=== PATIENT | male | born 1950 | race Caucasian/White ===

== ENCOUNTER → 2016-05-07 | Outpatient (CLI) | payer BC ==
[~2016-05-07] MED LIST: ALFU10TA30 PO; ASPCH81X PO; FLUO40CA8 PO; LEVO150T9 PO; OXYC1TAB3 PO; SIMV20TA2 PO
--- NOTE | 2016-05-07 10:14 | DIAGNOSTIC IMAGING REPORT ---
CHEST 2 VIEWS ROUTINE CLINICAL HISTORY: Renal cell carcinoma COMPARISON STUDY: 09/22/2015 FINDINGS: The cardiac and mediastinal contours are normal. There is no evidence of focal pulmonary consolidation. There is no evidence of failure. No pleural effusions are visualized.[ IMPRESSION: No active disease in the chest. Electronically signed by: Marcel Roa M.D. 05/07/2016 10:12 AM Dictated Date/Time: 05/07/2016 10:12 AM
[2016-05-07 10:40] LABS: ALB/GLOB RATIO 1.1 (0.9-2); ALKALINE PHOSPHATASE 62 U/L (45-117); ALT/SGPT 33 U/L (12-78); AST/SGOT 13 U/L (15-37); BLOOD UREA NITROGEN 13 mg/dl (7-18); BUN/CREATININE RATIO 13.3 (10-20); CALCIUM 8.4 mg/dl (8.5-10.1); CARBON DIOXIDE 25 mmol/L (21-32); CHLORIDE 109 mmol/L (98-107); CREATININE 0.97 mg/dl (0.60-1.40); GLUCOSE 181 mg/dl (70-99); POTASSIUM 4.3 mmol/L (3.5-5.1); SODIUM 143 mmol/L (136-145)
== END | disposition home or self-care (01) ==
LOC: C.RAD 09:43
PROVIDERS: ATTEND Urology
DX: N28.89 Other specified disorders of kidney and ureter (principal)

== ENCOUNTER → 2016-05-08 | Outpatient (CLI) | payer BC ==
[2016-05-08 12:37] LABS: BLOOD UREA NITROGEN 11 mg/dl (7-18); BUN/CREATININE RATIO 12.5 (10-20); CALCIUM 8.8 mg/dl (8.5-10.1); CARBON DIOXIDE 28 mmol/L (21-32); CHLORIDE 106 mmol/L (98-107); CREATININE 0.92 mg/dl (0.60-1.40); GLUCOSE 103 mg/dl (70-99); POTASSIUM 4.4 mmol/L (3.5-5.1); SODIUM 140 mmol/L (136-145)
[2016-05-08 12:40] LABS: CHOLESTEROL 171 mg/dl (0-200); CHOLESTEROL/HDL RATIO 3.1; ESTIMATED AVERAGE GLUCOSE 128 mg/dl; HA1C FLAG Normal (Normal); HDL CHOLESTEROL 55 mg/dl; LDL CHOLESTEROL CALCULATED 83 mg/dl; TRIGLYCERIDES 166 mg/dl (0-150); VERY LOW DENSITY LIPOPROT CALC 33 mg/dl
== END | disposition home or self-care (01) ==
LOC: C.LAB 10:16
PROVIDERS: ATTEND Internal Medicine
DX: R73.03 Prediabetes (principal); E78.5 Hyperlipidemia, unspecified; C64.9 Malignant neoplasm of unspecified kidney, except renal pelvis

== ENCOUNTER → 2016-09-03 | Outpatient (CLI) | payer BC ==
[~2016-09-03] MED LIST changes: +ALFU10TA2 PO; -ALFU10TA30 PO
--- NOTE | 2016-09-03 15:20 | DIAGNOSTIC IMAGING REPORT ---
CHEST 2 VIEWS ROUTINE CLINICAL HISTORY: N28.89 Renal massC64.9 Renal cell carcinoma COMPARISON STUDY: 05/07/2016 FINDINGS: The bones soft tissues and hemidiaphragms are normal. The cardiomediastinal silhouette is normal. The lungs are clear. The pulmonary vasculature is normal. IMPRESSION: Negative chest. Electronically signed by: Sekou Neely M.D. 09/03/2016 3:19 PM Dictated Date/Time: 09/03/2016 3:18 PM
[2016-09-03 16:23] LABS: ALT/SGPT 37 U/L (12-78); BLOOD UREA NITROGEN 15 mg/dl (7-18); BUN/CREATININE RATIO 16.9 (10-20); CARBON DIOXIDE 24 mmol/L (21-32); CHLORIDE 111 mmol/L (98-107); GLUCOSE 85 mg/dl (70-99); POTASSIUM 3.9 mmol/L (3.5-5.1); SODIUM 143 mmol/L (136-145)
[2016-09-03 16:28] LABS: ALB/GLOB RATIO 0.8 (0.9-2); ALKALINE PHOSPHATASE 64 U/L (45-117); AST/SGOT 21 U/L (15-37)
[2016-09-03 16:44] LABS: CALCIUM 8.7 mg/dl (8.5-10.1)
== END | disposition home or self-care (01) ==
LOC: C.RAD1850 14:41
PROVIDERS: ATTEND Urology
DX: N28.89 Other specified disorders of kidney and ureter (principal); C64.9 Malignant neoplasm of unspecified kidney, except renal pelvis

== ENCOUNTER → 2016-09-11 | Outpatient (CLI) | payer BC ==
[~2016-09-11] MED LIST changes: -ALFU10TA2 PO; +ALFU10TA30 PO; +GADAVIST IV PRN
--- NOTE | 2016-09-11 10:01 | DIAGNOSTIC IMAGING REPORT ---
MRI OF THE ABDOMEN WITH AND WITHOUT CONTRAST RENAL PROTOCOL CLINICAL HISTORY: Renal cell carcinoma status post right partial nephrectomy. COMPARISON STUDY: MRI of the abdomen September 22, 2015. TECHNIQUE: Utilizing a 1.5 Bernice magnet and dedicated coil, multiplanar, multiecho imaging of the abdomen was performed pre and postcontrast administration. Injection of 10.5 cc of Gadavist IV was uneventful. Post contrast imaging was performed utilizing dynamic enhancement. FINDINGS: There are stable postoperative findings consistent with a right partial nephrectomy with resection of the mass arising from the upper pole of the right kidney which was shown on exam of July 28, 2014. No recurrent mass is identified within the partial nephrectomy bed. There are no solid renal lesions on this exam. 2 left renal cysts measure up to 2 cm. There are a few subcentimeter hepatic cyst. There are no suspicious hepatic lesions. The spleen, adrenal glands, kidneys and pancreas are normal. A splenule is noted within the splenic hilum. There is no abdominal lymphadenopathy or ascites. IMPRESSION: 1. No evidence of recurrent malignancy status post right partial nephrectomy. 2. Two left renal cysts. No solid renal lesions. Electronically signed by: Shoaib Holly M.D. 09/11/2016 10:00 AM Dictated Date/Time: 09/11/2016 9:48 AM
== END | disposition home or self-care (01) ==
LOC: C.MRI 08:29
PROVIDERS: ATTEND Urology
DX: C64.9 Malignant neoplasm of unspecified kidney, except renal pelvis (principal); N28.89 Other specified disorders of kidney and ureter; N28.1 Cyst of kidney, acquired

== ENCOUNTER → 2016-09-26 | Outpatient (CLI) | payer BC ==
[~2016-09-26] MED LIST changes: -GADAVIST IV PRN
== END | disposition home or self-care (01) ==
LOC: C.PATHSPEC 11:36
PROVIDERS: ATTEND Urology
DX: R97.20 Elevated prostate specific antigen [PSA] (principal)

== ENCOUNTER → 2016-11-16 | Outpatient (CLI) | payer BC ==
--- NOTE | 2016-11-16 09:26 | DIAGNOSTIC IMAGING REPORT ---
CHEST 2 VIEWS ROUTINE CLINICAL HISTORY: 66 years-old Male presenting with N40.1 Benign localized hyperplasia of prostate with urinary obstruction. TECHNIQUE: PA and lateral views of the chest were obtained. COMPARISON: None. FINDINGS: Cardiomediastinal silhouette normal. Tortuosity of the descending thoracic aorta. Lungs and pleural spaces clear. Osseous structures normal. Upper abdomen normal. IMPRESSION: 1. No acute cardiopulmonary disease. Electronically signed by: Yon Dickens M.D. 11/16/2016 9:24 AM Dictated Date/Time: 11/16/2016 9:24 AM
[2016-11-16 10:08] LABS: BASO % 1.1 %; BASO ABS # 0.06 K/uL (0-0.2); COMPLETE YES; HEMATOCRIT 46.1 % (42-52); IG% 0.2 %; LYMPH % 30.7 %; MEAN CELL VOLUME 92.2 fL (80-100); MEAN CORPUSCULAR HEMOGLOBIN 30.8 pg (25-34); MEAN CORPUSCULAR HGB CONC 33.4 g/dl (32-36); MEAN PLATELET VOLUME 9.8 fL (7.4-10.4); MONO % 8.1 %; NEUT % 55.9 %; PLATELET COUNT 237 K/uL (130-400); WHITE BLOOD COUNT 5.53 K/uL (4.8-10.8)
[2016-11-16 10:43] LABS: ALT/SGPT 29 U/L (12-78); AST/SGOT 12 U/L (15-37); BLOOD UREA NITROGEN 14 mg/dl (7-18); CALCIUM 9.1 mg/dl (8.5-10.1); CARBON DIOXIDE 29 mmol/L (21-32); CHLORIDE 106 mmol/L (98-107); CREATININE 0.96 mg/dl (0.60-1.40); GLUCOSE 105 mg/dl (70-99); POTASSIUM 4.6 mmol/L (3.5-5.1); SODIUM 139 mmol/L (136-145)
[2016-11-16 10:54] LABS: ALB/GLOB RATIO 0.9 (0.9-2); ALKALINE PHOSPHATASE 54 U/L (45-117); CHOLESTEROL 176 mg/dl (0-200); CHOLESTEROL/HDL RATIO 3.5; HDL CHOLESTEROL 50 mg/dl; LDL CHOLESTEROL CALCULATED 93 mg/dl; TRIGLYCERIDES 165 mg/dl (0-150); VERY LOW DENSITY LIPOPROT CALC 33 mg/dl
[2016-11-16 10:56] LABS: ESTIMATED AVERAGE GLUCOSE 140 mg/dl; HA1C FLAG Normal (Normal)
== END | disposition home or self-care (01) ==
LOC: C.RAD1850 09:02
PROVIDERS: ATTEND Urology
DX: E03.9 Hypothyroidism, unspecified (principal); R73.03 Prediabetes; C64.9 Malignant neoplasm of unspecified kidney, except renal pelvis; N40.1 Benign prostatic hyperplasia with lower urinary tract symptoms; E78.5 Hyperlipidemia, unspecified

== ENCOUNTER → 2017-03-15 | Outpatient (CLI) | payer BC ==
[~2017-03-15] MED LIST changes: +ALFU10TA2 PO; -ALFU10TA30 PO; +OXYC-90 PO; -OXYC1TAB3 PO
[2017-03-15 12:29] LABS: HEMOGLOBIN A1C 6.4 % (4.5-5.6)
[2017-03-15 12:31] LABS: BLOOD UREA NITROGEN 12 mg/dl (7-18); CALCIUM 8.9 mg/dl (8.5-10.1); CARBON DIOXIDE 29 mmol/L (21-32); GLUCOSE 115 mg/dl (70-99); POTASSIUM 4.1 mmol/L (3.5-5.1); SODIUM 136 mmol/L (136-145)
== END | disposition home or self-care (01) ==
LOC: C.LAB1850 10:47
PROVIDERS: ATTEND Internal Medicine
DX: R73.03 Prediabetes (principal); C61 Malignant neoplasm of prostate; C64.9 Malignant neoplasm of unspecified kidney, except renal pelvis; N28.89 Other specified disorders of kidney and ureter

== ENCOUNTER 2022-03-13 06:18 | Inpatient (IN) ==
--- NOTE | 2022-03-06 14:45 | Anesthesiology Consultation ---
Date of Service March 06, 2022 Assessment & Plan (1) Encounter for pre-operative examination: - COVID screening: Per commercial drafter on 03/06/2022: Travel screen negative, no known COVID-19 positive contacts or current COVID-19 related symptoms in past 2 weeks. To surgeon's discretion if preop COVID testing is needed. Chart Review Chart Review: Acceptable Risk for Surgery and Patient NOT seen in Pre Admission Testing History Surgery Operation Date: 03/13/22 07:30 Proposed Procedures p Robotic Laparoscopic Assisted Radical Retropubic Prostatectomy, Possible Open, Possible Pelvic Lymph Node Dissection, Possible Suprapubic Tube Placement - Luis Marte MD Height/Weight Height: 6 ft 2 in Weight: 106.594 kg Allergies Allergy/AdvReac Type Severity Reaction Status Date / Time shellfish derived Allergy Severe TIGHTNESS Verified 01/31/22 08:11 IN CHEST/SWELLING OF THROAT codeine AdvReac Mild NAUSEA/VOMI Verified 01/31/22 08:11 TING Medications Home Medications Medication Instructions Recorded Confirmed Last Taken aspirin 81 mg tablet,delayed 81 mg PO QAM ##0 03/16/15 03/06/22 10/27/20 release levothyroxine 125 mcg tablet 125 mcg PO DAILY #90 tabs 12/07/21 03/06/22 Unknown simvastatin 20 mg tablet 20 mg PO QAM #90 tabs 12/07/21 03/06/22 Unknown fluoxetine 40 mg capsule 40 mg PO QAM #90 caps 01/08/22 03/06/22 Unknown cholecalciferol (vitamin D3) 25 25 mcg PO QAM 03/06/22 03/06/22 Unknown mcg (1,000 unit) tablet (Vitamin D3) cyanocobalamin (vitamin B-12) 250 250 mcg PO QAM 03/06/22 03/06/22 Unknown mcg tablet (Vitamin B-12) Past Medical History Medical History (Updated 03/06/22 @ 14:39 by Krissy Leavitt PA-C) Anxiety Cancer of kidney R "RENAL CELL CARCINOMA - CLEAR CELL CARCINOMA - RADICAL NEPHRECTOMY 2014" PER PMHx Depression Diverticulosis Elevated prostate specific antigen (PSA) Former smoker Hyperlipidemia Hypothyroidism Low back pain Pre-diabetes watching diet and A1c Prostate CA ADENOCARCINOMA "JUST MONITORING", NO CHEMO/RADIATION Past Family History Family History Father Congestive heart failure Disc degeneration, lumbar Mother Allergies Kyphoscoliosis Osteoporosis Son Asthma Brother Cerebral arterial aneurysm Denies family history of Colon cancer Ovarian cancer Prostate cancer Myocardial infarction Breast cancer Past Surgical History Surgical History H/O partial nephrectomy R History of colonoscopy History of surgical removal of ganglion cyst R WRIST History of tonsillectomy History of tooth extraction WISDOM TEETH Hx of vasectomy Social History Smoking Status: Former smoker tobacco type: cigarettes Do You Dip or Chew Tobacco: No Smoking End Date: quit 15-20 yrs ago Hx Alcohol Use: Yes Alcohol type: beer and hard liquor alcohol intake frequency: holidays/special occasions only Hx Substance Use: No substance use type: does not use Lab Results Anesthesia Preop Results Results Anesthesia Widget: WBC 6.55 K/ul (4.8-10.8) 02/22/22 Hgb 15.0 g/dl (14.0-18.0) 02/22/22 Hct 45.8 % (40.1-51.0) 02/22/22 Plt 256 K/uL (130-400) 02/22/22 Na 137 mmol/L (136-145) 02/22/22 K 4.1 mmol/L (3.5-5.1) 02/22/22 Cl 105 mmol/L (98-107) 02/22/22 CO2 26 mmol/L (21-32) 02/22/22 BUN 16 mg/dl (6-23) 02/22/22 Creat 0.92 mg/dl (0.6-1.4) 02/22/22 Glucose Level 157 mg/dl (70-99(Fasting)) H 02/22/22 Testing Electrocardiogram Date: 02/22/22 Ectopic atrial rhythm, rate 67 bpm Left anterior fascicular block Septal infarct, age undetermined Septal infarct and ectopic atrial rhythm new vs EKG 10/06/14 Mild SOB with stairs reported per PAT pharmacy intake coordinator call, case discussed in detail with Dr. Garcia who advised pt is acceptable to proceed without further evaluation or testing from his standpoint Chest X-Ray Date: 02/22/22 Cardiac mediastinal and hilar silhouettes are within normal limits. No pneumothorax, pleural effusion, airspace consolidation or overt pulmonary edema. Degenerative changes of the shoulders and spine. IMPRESSION: No acute process. Other Testing Bone scan 01/01/22 The left femoral neck focus of uptake corresponds to a benign-appearing sclerotic lesion in the prior CT abdomen pelvis, no further follow-up is required for this lesion. 1. Prominent uptake in the anterior left ribs may be due to trauma, correlation with history and physical exam is recommended. Blastic metastases cannot be excluded but are considered less likely. 2. Left femoral neck focus of uptake. A focus of metastatic disease is likely, correlation with CT and/or PSMA imaging is recommended. 3. Numerous additional foci of uptake are seen as above, favored to be degenerative.
[~2022-03-13 06:18] MED LIST changes: -ALFU10TA2 PO; -ASPCH81X PO; -FLUO40CA8 PO; -LEVO150T9 PO; +LR 15ML/HR IV SCH; -OXYC-90 PO; -SIMV20TA2 PO
[2022-03-13] MEDS ORDERED: LIDOCAINE 2% 20 MG/ML 5 ML SYR IV ONE (06:51)
[2022-03-13] MEDS ORDERED: fentaNYL citrate 100 MCG/2 ML VIAL ONE ×2 (06:51→09:56)
[2022-03-13] MEDS ORDERED: ROCURONIUM BROMIDE 10 MG/ML 5 ML VIAL IV ONE ×3 (06:51→09:57)
[2022-03-13] MEDS ORDERED: PROPOFOL IV EMULSION 10 MG/ML 20 ML VIAL IV ONE (06:51)
[2022-03-13] MEDS: HEPARIN SOD 5,000 UNIT/0.5 ML VIAL SC SCH ×4 (07:13→14:10)
--- NOTE | 2022-03-13 07:14 | History & Physical Bridge Note ---
Date of Service March 13, 2022 History & Physical Bridge Note I have examined the patient, reviewed the History & Physical and in the interval since the performance of the History & Physical I have noted the following changes of clinical significance: no changes noted
[2022-03-13] MEDS ORDERED: ePHEDrine sulfate 50 MG/ML AMP IV PRN (07:35)
[2022-03-13] MEDS ORDERED: PROMETHAZINE HCL 6.25 MG in SODIUM CHLORIDE 0.9% 50 ML IV PRN (07:35)
[2022-03-13] MEDS ORDERED: HYDROmorphone INJ 2 MG/ML SYR/VIAL IV PRN (07:35)
[2022-03-13] MEDS ORDERED: fentaNYL citrate 100 MCG/2 ML VIAL IV PRN (07:35)
[2022-03-13] MEDS ORDERED: ONDANSETRON INJ 2 MG/ML 2 ML VIAL IV PRN ×2 (07:35→13:36)
[2022-03-13] MEDS ORDERED: ATROPINE SULFATE 0.1 MG/ML 10ML SYR IV PRN (07:35)
[2022-03-13] MEDS ORDERED: BUPIVACAINE 0.5 % 5 MG/1 ML MPF 30ML VIAL ONE (08:33)
[2022-03-13] MEDS ORDERED: BELLADONNA/OPIUM SUPP 60 MG SUPP PR ONE ×2 (08:40→09:31)
[2022-03-13] MEDS ORDERED: ONDANSETRON INJ 2 MG/ML 2 ML VIAL ONE (09:19)
[2022-03-13] MEDS ORDERED: DEXAMETHASONE SOD INJ 4 MG/ML VIAL ONE (09:19)
[2022-03-13] MEDS ORDERED: NEOSTIGMINE METHYLSULFATE 1 MG/ML 10ML VIAL ONE (09:19)
[2022-03-13] MEDS ORDERED: GLYCOPYRROLATE 0.2 MG/ML VIAL ONE (09:19)
[2022-03-13] MEDS ORDERED: ePHEDrine sulfate 50 MG/ML SYR ONE (09:21)
[2022-03-13] MEDS ORDERED: FLOSEAL HEMOSTATIC MATRIX 10ML TOP ONE (09:48)
[2022-03-13] MEDS ORDERED: SURGICEL ABSORB HEMOSTAT 2IN X 14IN TOP ONE (09:48)
--- NOTE | 2022-03-13 12:03 | Operative Report ---
PG Post Operative Report Pre & Post Diagnosis Operation Date: 03/13/22 08:05 Pre-Op Diagnosis: Prostate Cancer Post-Op Diagnosis: Prostate Cancer I identified the patient and participated in the time-out.: Yes Procedure Operation Date: 03/13/22 08:05 Actual Procedures p Robotic Laparoscopic Assisted Radical Retropubic Prostatectomy, Pelvic Lymph Node Dissection(Not Applicable) - Luis Marte MD Surgeon Luis Marte MD Photographer News Junie Leo Estimated Blood Loss 100 Findings Consistent with Post-Op Diagnosis Specimens 1. Periprostatic fat 2. Prostate and seminal vesicles 3. Left pelvic lymph nodes 4. Right pelvic lymph nodes Description of Procedure The patient was identified in the preoperative holding area, appropriate informed consents were reviewed and completed, and he was transported to the operating suite. Subcutaneous heparin was administered in the pre-operative holding area. Upon arrival in the operating suite, he received appropriate antibiotics and general anesthesia. He was positioned in dorsal lithotomy, a B&O suppository was inserted after digital rectal exam, and he was prepped and draped in standard fashion. A Mendiola catheter was inserted in the sterile field. A Veress needle was passed per umbilicus with uniform insufflation of the abdomen to 15mmHg. He was placed in steep Trendelenburg position. A periumbilical incision was then made to accommodate a 12mm Visiport with 10mm 0degree laparoscope. Inspection of the abdomen was carried out, and there was no evidence of traumatic entry or injury secondary to the Veress needle. After confirming a clear anterior abdominal wall, ports were subsequently placed in standard robotic prostatectomy fashion without incident. To begin the robotic portion of the case, the left lateral aspect of the sigmoid was mobilized off of the left pelvic side wall to allow the pouch of Ben to be appropriately visualized. I then made an incision in the pouch of Ben, overlying the seminal vesicles. Both SVs as well as the ampullae of the vasa were entirely dissected, with the vasa transected 3cm from the prostate. The medial umbilical ligaments were then controlled with bipolar electrocautery just inferior to the umbilicus. Following cauterization, they were divided utilizing monopolar cautery. A peritoneal incision was carried from this location to the medial aspect of the internal inguinal rings bilaterally with care to avoid opening through the ring. This incision was concluded when the vas deferens was reached. Dissection of the bladder and prostate off of the posterior aspect of the pubic arch was completed allowing full visualization of the prostate. The fat overlying the prostate was removed en bloc and passed off the table as a specimen labeled "periprostatic fat". The endopelvic fascia was cleared during this portion of the procedure, and subsequently opened - first on the right and then the left. The incision through the endopelvic fascia began near the prostate-bladder junction and was carried to the apex with extreme care to preserve all lateral levator musculature as well as the periurethral musculature and sphincter complex. I additionally preserved the puboprostatic ligaments. I then controlled the DVC with a 3-0 V-lock suture in overlapping/figure of 8 fashion. The lymph node dissection was then conducted. External iliac vessels were identified on the pelvic side wall. The packet of fat and lymphatic tissue that resides just under the iliac vein was elevated and off of the vein with a split and roll technique. The packet was dissected laterally to the circumflex vein and distally to the obturator nerve which was preserved. The proximal aspect of the packet was carried towards the bifurcation of the iliac vessels. A combination of monopolar and bipolar cautery were used to assist with control. After completing the dissection on both sides, the packets were collected and passed off of the table as specimens labeled "pelvic lymph nodes". My attention then returned to the prostate, with identification of the bladder neck aided by gentle traction on the Mendiola catheter and lateral to medial pressure at the presumed level of the bladder neck with the robotic instruments. An anterior cystotomy was made, the Mendiola balloon deflated and the catheter guided through the incision to allow anterior retraction. I attempted to preserve maximal bladder neck musculature as I circumferentially dissected around the bladder neck. After incision through the posterior aspect of the mucosa, the dissection was carried through detrusor muscle until the bilateral ampullae of the vasa were identified. The previously dissected vasa and SVs were brought through the incision and used to elevated the prostate anteriorly. A posterior plane behind the prostate was then developed - splitting Denonvilliers's fascia. This dissection was carried as far as possible towards the apex as well as far as possible laterally. An incision in the lateral prostatic fascia was then made bilaterally to facilitate control of the vascular pedicles and preservation of the nerve bundles. Vasculature running along the posterior/lateral aspect of the prostate was preserved as well as the tissue containing the nerves. There was a guarded approach to the nerve sparing, particularly on the left, however the nerves dissected easily off of the prostate. The pedicles were then controlled with a series of Weck clips. The apical attachments of the prostate were remaining at that stage. The DVC was divided after control with bipolar cautery over the prostate. Continuous inspection from anterior and lateral views allowed me to closely follow the a pical contour of the prostate and maximally preserve urethral length and tissue. The prostate was entirely freed at that point, and collected in an EndoCatch bag before being moved out of the field of vision. Hemostasis was confirmed and anastomosis of the bladder and urethra was completed utilizing a double armed V- Lock stitch. A new Mendiola catheter was inserted and the anastomosis tested with irrigation. There was no evidence of leak. A noam style stitch was placed bilaterally to functionally marsupialize the area of the lymph node dissection. The robot was undocked, the specimen extracted through expansion of the aria- umbilical camera port. The fascia was closed with a series of 0-PDS figure of 8 stitches. The right assistant director port was closed in two layers - with a figure of 8 0-Vicryl to reapproximate the fascia followed by 4-0 Monocryl to close the skin. Monocryl was used to close all other skin incisions. All wounds were dressed with Dermabond. The case was concluded and the patient taken to the PACU in stable condition. Junie Leo assisted from incision to closure. I attest to the content of the Intraoperative Record and any orders documented therein. Any exceptions are noted below.
[2022-03-13 12:28] LABS: Basophils # (auto) 0.08 K/uL (0-0.2); Basophils % (auto) 0.7 %; Eosinophils # (auto) 0.03 K/uL (0-0.50); Eosinophils % (auto) 0.3 %; Hematocrit (blood only) 44.5 % (40.1-51.0); Hemoglobin 14.5 g/dl (14.0-18.0); Immature Granulocytes # (auto) 0.05 K/uL (0.00-0.02); Immature Granulocytes % (auto) 0.4 %; Lymphocytes # (auto) 1.38 K/uL (1.2-3.4); Lymphocytes % (auto) 11.9 %; Mean Corpuscular Hemoglobin 30.2 pg (25.0-34.0); Mean Corpuscular Hgb Conc 32.6 g/dL (32.0-36.0); Mean Corpuscular Volume 92.7 fL (80.0-100.0); Mean Platelet Volume 9.4 fL (9.4-12.4); Monocytes # (auto) 0.19 K/uL (0.24-0.82); Monocytes % (auto) 1.6 %; Neutrophils # (auto) 9.83 K/uL (1.4-6.5); Neutrophils % (auto) 85.1 %; Platelet Count 221 K/uL (130-400); RDW Coefficient of Variation 12.5 % (11.5-14.5); White Blood Count 11.56 K/ul (4.8-10.8)
[2022-03-13 12:46] LABS: BUN Creatinine Ratio 14.9 (10-20); Calcium 8.6 mg/dl (8.5-10.1); Creatinine Clr Calc Pharmacy 88.2 ml/min; Est GFR (African American) 86.9 ml/min; Potassium 4.3 mmol/L (3.5-5.1)
--- NOTE | 2022-03-13 12:56 | Anesthesiology Progress Note ---
Date of Service March 13, 2022 Anesthesia Post Procedure Vital Signs Vital Signs: Temp Pulse Pulse Resp BP BP Pulse Ox 03/13/22 12:40 36.7 C 67 17 97/57 L 99 03/13/22 12:30 70 14 93/58 L 91 03/13/22 12:20 74 15 89/54 L 92 03/13/22 12:10 84 18 105/64 93 03/13/22 12:04 36.5 C 88 18 116/68 94 03/13/22 06:50 36.6 C 61 20 142/78 H 95 O2 Del Method O2 Flow Rate 03/13/22 12:40 Nasal Cannula 3 03/13/22 12:30 Nasal Cannula 3 03/13/22 12:20 Oxymask 5 03/13/22 12:10 Oxymask 5 03/13/22 12:04 Oxymask 5 03/13/22 06:50 Room Air Pain Intensity Bilateral Lower Back: Pain Intensity: 1 Transfer of Care Handoff Completed per policy Notes Mental Status: alert / awake / arousable Patient Amnestic to Procedure: Yes Nausea / Vomiting: adequately controlled Pain: adequately controlled Airway Patency, RR, SpO2: stable & adequate BP & HR: stable & adequate Hydration State: stable & adequate Anesthetic Complications: no major complications apparent
[2022-03-13] MEDS ORDERED: MoRPHine SULFATE 4 MG/ML 1 ML CARP\\VIAL IV PRN (13:36)
[2022-03-13] MEDS ORDERED: oxyCODONE HCL IR 5 MG TAB (IMMEDIATE RELEASE) PO PRN ×2 (13:36)
[2022-03-13] MEDS ORDERED: MoRPHine SULFATE 2 MG/ML CARP IV PRN (13:36)
[2022-03-13] MEDS: ceFAZolin 2000MG 2,000 MG/15 ML SYR IV SCH ×2 (14:50→21:39)
[2022-03-13] MEDS: LACTATED RINGER'S 1,000 ML IV SCH ×2 (14:50→20:34)
[2022-03-13] MEDS ORDERED: KETOROLAC TROMETHAMINE 15 MG/ML VIAL IV PRN (17:22)
[2022-03-13] MEDS: ACETAMINOPHEN 325 MG TAB PO SCH (18:13)
[2022-03-13] MEDS: DOCUSATE SODIUM 100 MG CAP PO SCH (20:34)
[2022-03-13] MEDS: HEPARIN SOD 5,000 UNIT/0.5 ML VIAL SQ SCH (20:35)
[2022-03-14] MEDS: ACETAMINOPHEN 325 MG TAB PO SCH ×2 (00:45→06:01)
[2022-03-14] MEDS: LACTATED RINGER'S 1,000 ML IV SCH (06:02)
[2022-03-14] MEDS ORDERED: LEVOTHYROXINE SODIUM 125 MCG TABLET PO SCH (06:30)
[2022-03-14 06:59] VITALS: BP 106/65; TEMP 97.3
[2022-03-14 08:07] LABS: Basophils # (auto) 0.02 K/uL (0-0.2); Basophils % (auto) 0.2 %; Hematocrit (blood only) 37.9 % (40.1-51.0); Hemoglobin 12.4 g/dl (14.0-18.0); Immature Granulocytes # (auto) 0.02 K/uL (0.00-0.02); Immature Granulocytes % (auto) 0.2 %; Lymphocytes # (auto) 1.09 K/uL (1.2-3.4); Lymphocytes % (auto) 11.1 %; Mean Corpuscular Hemoglobin 30.2 pg (25.0-34.0); Mean Corpuscular Hgb Conc 32.7 g/dL (32.0-36.0); Mean Corpuscular Volume 92.4 fL (80.0-100.0); Mean Platelet Volume 9.5 fL (9.4-12.4); Monocytes # (auto) 0.93 K/uL (0.24-0.82); Monocytes % (auto) 9.4 %; Neutrophils % (auto) 79.1 %; Platelet Count 195 K/uL (130-400); RDW Coefficient of Variation 12.8 % (11.5-14.5); RDW Standard Deviation 43.4 fL (36.4-46.3); White Blood Count 9.86 K/ul (4.8-10.8)
--- NOTE | 2022-03-14 08:07 | Urology Progress Note ---
Date of Service March 14, 2022 Assessment & Plan (1) Prostate cancer: Plan: Postop day #1 status post prostatectomy Doing very well Advance diet Ambulate Discharge home later this morning Admission and Anticipated Discharge Date Admission Date: March 13, 2022 Subjective No issues overnight Minimal discomfort Urine clear Good urine output Ambulatory Ready for regular diet Physical Exam Physical Exam: Incisions appropriate, abdomen soft, nontender, urine clear Results & Data ([facility]) Vital Signs (Past 12 Hours) Vital Signs Temp Pulse Pulse Resp BP Pulse Ox O2 Del Method 03/14/22 06:58 36.3 C L 56 L 16 106/65 93 Nasal Cannula 03/14/22 05:00 36.6 C 62 18 112/61 95 Room Air, Nasal Cannula 03/14/22 01:00 36.7 C 78 18 98/59 L 94 Nasal Cannula 03/13/22 22:14 37.1 C 87 18 105/63 92 Nasal Cannula O2 Flow Rate 03/14/22 06:58 1 03/14/22 05:00 2 03/14/22 01:00 2 03/13/22 22:14 2 PG Care Time/CCT Total # of Minutes Spent Total Time Spent with Patient: Total time spent is greater than 50% in coordination of care (as documented) at patient's floor/unit and/or counseling patient: Coding Level of Care Code None Diagnoses Prostate cancer C61
[2022-03-14 08:40] VITALS: PULSE 62; O2SAT 94
[2022-03-14] MEDS: DOCUSATE SODIUM 100 MG CAP PO SCH (08:41)
[2022-03-14] MEDS: HEPARIN SOD 5,000 UNIT/0.5 ML VIAL SQ SCH (08:42)
[2022-03-14 09:00] LABS: BUN Creatinine Ratio 19.6 (10-20); Calcium 8.1 mg/dl (8.5-10.1); Creatinine Clr Calc Pharmacy 91.8 ml/min; Est GFR (African American) 91.3 ml/min; Est GFR (Non-African American) 78.8 ml/min; Potassium 4.3 mmol/L (3.5-5.1)
[2022-03-14] MEDS ORDERED: CHOLECALCIFEROL 1,000 UNITS 25 MCG TAB PO SCH (09:00)
[2022-03-14] MEDS ORDERED: ASPIRIN 81 MG ECTAB PO SCH (09:00)
[2022-03-14] MEDS ORDERED: FLUoxetine HCL 20 MG CAP PO SCH (09:00)
[2022-03-14] MEDS ORDERED: SIMVASTATIN 20 MG TAB PO SCH (09:00)
--- NOTE | 2022-03-14 09:34 | Discharge Summary ---
Date of Service March 14, 2022 Admission HPI Per Admitting Provider Patient with prostate cancer here for RALP. Admission Exam Per Admitting Provider Physical Exam Constitutional well developed and well nourished Neck neck nontender Respiratory normal respiratory effort; no respiratory distress and does not use accessory muscles Cardiovascular Rate/Rhythm: regular rate Vessels: radial pulses present Extremities: no edema Gastrointestinal (Abdomen) Inspection/Auscultation: abdomen normal to inspection Percussion/Palpation: abdomen soft; abdomen nontender and no guarding Musculoskeletal Head/Neck/Chest: normocephalic and head atraumatic Extremities: extremities normal to inspection Skin no rashes and no lesions Trauma: no evidence of skin trauma Neurologic awake; not obtunded Speech / Cognition: normal speech Motor/Sensory: no tremor Psychiatric Orientation: alert and oriented x 3 Genitourinary no CVA tenderness Lymphatic no lymphadenopathy Principal Diagnosis Prostate cancer Discharge Exam Constitutional well developed and well nourished; no acute distress Respiratory normal respiratory effort; no respiratory distress and no labored breathing Gastrointestinal (Abdomen) Inspection/Auscultation: abdomen normal to inspection; abdomen not distended Skin incisions appropriate Psychiatric Orientation: alert and oriented x 3 Genitourinary Mendiola intact and draining clear urine Discharge Data Allergies Allergy/AdvReac Type Severity Reaction Status Date / Time shellfish derived Allergy Severe TIGHTNESS Verified 03/13/22 06:47 IN CHEST/SWELLING OF THROAT codeine AdvReac Mild NAUSEA/VOMI Verified 03/13/22 06:47 TING Procedures Performed Operation Date: 03/13/22 08:05 Actual Procedures p Robotic Laparoscopic Assisted Radical Retropubic Prostatectomy, Pelvic Lymph Node Dissection(Not Applicable) - Luis Marte MD Hospital Course (1) Prostate cancer: Postop day #1 status post prostatectomy Doing very well Advance diet Ambulate Discharge home later this morning Patient reassessed at 0930 - he is doing well and ready for discharge now - orders placed. He will be discharged to home with Mendiola catheter. Expected clinical course reviewed, all questions answered. Will arrange appropriate follow-ups. Total Time Total Time Spent Total Time Spent (In Minutes): 29 Discharge Plan Discharge Items Patient Disposition: Home - Self-Care Reason For Visit: Prostate Cancer Discharge Diagnosis: Prostate Cancer Activity: Per Instructions section Lifting: No more than 10 pounds Bathing Comment: Okay to shower, no tub bath or soaking Sexual Activity: Wait until after follow-up appointment Exercise/Sports: Wait until after follow-up appointment Driving/Machine Use: No driving while taking prescription pain medication Non-emergency contact: Surgeon and Urologist Call non-emergency contact if: your pain is not controlled, your pain is worsening, you have a fever, your temperature is above 101, your wound has increased redness, your wound has increased drainage and your wound pain has increased Follow-up/Referrals: Kamaljit Eason MD [Primary Care Provider] - 03/26/22 11:00 am (APPT WITH [facility]) Luis Marte MD [Physician] - ([facility] office will call you with a hospital/surgical follow up.) Diet: Regular Addtl Attending Provider Instructions: Please take all medications as prescribed and keep all follow-ups as scheduled. Please call our office at [phone] with any questions, concerns or need to reschedule appointments for any reason. We are happy to assist you. We have sent an antibiotic to your pharmacy of choice. Please begin antibiotic as prescribed the day BEFORE your scheduled voiding trial at [facility]. Please continue antibiotic every 12 hours through the day AFTER your voiding trial. Activity: We recommend having someone with you for the first few days after surgery to help care for you. For the first 2 weeks after surgery, we would like you to get up and walk around your house. However, we recommend limit physical activity that would increase your heart rate. This will allow your body to rest and heal. Take naps if you feel tired. Don't lift anything heavier than 10 pounds, mow the law or ride a bicycle until your follow-up appointment. Please avoid long car rides. Home Care: Unless directed otherwise, drink 6 to 8 glasses of water a day (enough to keep your urine light colored). This will also help keep a healthy flow of urine. We recommend using a stool softener for the first two weeks to avoid constipation. Mendiola Catheter or Suprapubic Catheter care: Keep the catheter well secured with either a leg back or leg strap with large bag. Empty your bag when it's about half full. You may notice some blood in the bag. This is normal after surgery and while the catheter is in place. Use mild soap (such as Dove or Dial) and water to wash the catheter and the head of your penis daily, or more frequently if needed. Return to your normal diet, we encourage good protein intake to promote healing. You may shower as normal. Please avoid tub baths or soaking until catheter removed and incisions well healed. Wearing sweat pants while you have the catheter is recommended, they will be more comfortable. Follow-up Your follow up appointments for having your catheter removed, and follow up with your physician should already be scheduled. If you have any questions regarding this, please contact our office. Your final pathology report will be discussed at your physician follow-up appointment. Call [facility] at [phone] right away if you have any of the following: Chest pain or trouble breathing (call 911 or go to the hospital) Fever of 101F or higher, uncontrolled vomiting Heavy bleeding, clots, or bright red blood from the catheter Catheter that falls out or stops draining Foul-smelling discharge from your catheter Redness, swelling, warmth, or increased pain at your incision site Drainage, pus, or bleeding from your incision Pending Studies at Discharge: Yes Studies:: Pathology Stand-Alone Forms: My [facility], Smoking Cessation Medications and DC Order Prescriptions: New ciprofloxacin HCl 500 mg tablet 500 mg PO BID Qty: 6 0RF oxycodone-acetaminophen [Percocet] 5-325 mg tablet 1 tab PO TID PRN (Reason: pain) Qty: 7 0RF Rx Instructions: post operative pain docusate sodium [Colace] 100 mg capsule 100 mg PO BID Qty: 60 0RF Rx Instructions: Take twice daily for 2 weeks, then as needed for constipation. Continued aspirin 81 mg Tablet,Delayed Release (Dr/Ec) 81 mg PO QAM Qty: 0 levothyroxine 125 mcg tablet 125 mcg PO DAILY Qty: 90 3RF simvastatin 20 mg tablet 20 mg PO QAM Qty: 90 3RF fluoxetine 40 mg capsule 40 mg PO QAM Qty: 90 1RF cyanocobalamin (vitamin B-12) [Vitamin B-12] 250 mcg Tablet 250 mcg PO QAM cholecalciferol (vitamin D3) [Vitamin D3] 25 mcg (1,000 unit) Tablet 25 mcg PO QAM Aleve PM Discharge Orders: Discharge Order (Routine); Ordered 03/14/22 Ordered By: Junie Leo Admission Data Admit Date/Time: 03/13/22 11:57 Attending Provider: Luis Marte Admit Provider: Luis Marte Primary Care Provider: Kamaljit Eason Coding Level of Care Code D/C DAY MANAGEMENT <30 MINS Diagnoses Prostate cancer C61
== END 2022-03-14 10:55 | disposition home or self-care (01) | DRG 708 ==
LOC: ASU 06:18 → 3W 11:57

== ENCOUNTER 2024-04-20 07:59 | Observation (INO) ==
[2024-04-20 08:42] LABS: Basophils # (auto) 0.08 K/uL (0.00-0.20); Basophils % (auto) 0.9 %; Eosinophils # (auto) 0.16 K/uL (0.00-0.50); Eosinophils % (auto) 1.7 %; Hematocrit (blood only) 46.3 % (42.0-52.0); Hemoglobin 15.4 g/dl (14.0-18.0); Immature Granulocytes # (auto) 0.06 K/uL (0.01-0.20); Immature Granulocytes % (auto) 0.7 %; Lymphocytes # (auto) 0.96 K/uL (1.20-3.40); Lymphocytes % (auto) 10.5 %; Mean Corpuscular Hemoglobin 30.1 pg (25.0-34.0); Mean Corpuscular Hgb Conc 33.3 g/dL (32.0-36.0); Mean Corpuscular Volume 90.6 fL (80.0-100.0); Mean Platelet Volume 10.1 fL (9.4-12.4); Monocytes # (auto) 0.15 K/uL (0.11-0.59); Monocytes % (auto) 1.6 %; Neutrophils # (auto) 7.74 K/uL (1.40-6.50); Neutrophils % (auto) 84.6 %; Platelet Count 299 K/uL (130-400); RDW Coefficient of Variation 12.7 % (11.5-14.5); RDW Standard Deviation 41.9 fL (36.4-46.3); Red Blood Count 5.11 M/uL (4.70-6.10); White Blood Count 9.15 K/ul (4.8-10.8)
--- NOTE | 2024-04-20 08:45 | XRay Report ---
XR chest 1V portable CLINICAL HISTORY: Weakness. Lung cancer. COMPARISON STUDY: Chest radiograph March 23, 2024. Chest CT February 23, 2024. FINDINGS: Elevation of the right hemidiaphragm is unchanged. Asymmetric right hilar fullness consiste nt with known right hilar mass is better depicted on prior chest CT. There is no consolidation to sug gest pneumonia. There is no evidence for pulmonary edema. Cardiomediastinal silhouette is stable. IMPRESSION: 1. Redemonstration of right hilar fullness consistent with a right hilar mass, better depicted on darwin or CT. 2. Stable elevation of the right hemidiaphragm. 3. No consolidation to suggest pneumonia. ACT 112: Negative or not required by law. Electronically signed by: Shoaib Holly M.D. 04/20/2024 8:43 AM
[2024-04-20 09:03] LABS: Albumin Globulin Ratio 1.2 (0.9-2); Albumin Level 4.2 gm/dl (3.4-5.0); BUN Creatinine Ratio 28.6 (10-20); Bilirubin,Total 1.1 mg/dl (0.2-1.0); Creatinine Clr Calc Pharmacy 85.3 ml/min; Globulin 3.4 gm/dl (2.5-4.0); Potassium 4.8 mmol/L (3.5-5.1); Total Protein 7.6 gm/dl (6.0-8.3)
[2024-04-20] MEDS: methylPREDNISolone 125 MG/2 ML VIAL IV STA (09:11)
[2024-04-20] MEDS: diphenhydrAMINE 50 MG/ML VIAL IV STA (09:11)
[2024-04-20 09:21] LABS: Prothrombin Time 10.7 Seconds (9.0-12.0)
[2024-04-20 09:25] LABS: Magnesium 1.8 mg/dl (1.7-2.4)
[2024-04-20 09:32] LABS: Troponin I High Sensitivity 5.6 pg/ml (0-20)
--- NOTE | 2024-04-20 09:34 | Emergency Department Note ---
Impression & Plan Syncope and collapse, Orthostatic hypotension, Hypoxia ED Provider Note HISTORY OF PRESENT ILLNESS: Patient is a 73-year-old male presenting with shortness of breath and a syncopal episode. Patient reports that since yesterday he has been feeling very constipated and today he took a dose of Dulcolax. He states that he was trying to have a bowel movement this morning because he was feeling very full in his abdomen, but after straining for multiple minutes he decided he was not able to have 1. He was walking back to his recliner when he suddenly became very weak and lightheaded. He states he became very short of breath as well. He states that the next thing he remembers is waking up on the ground and he had vomit in his lap. He does think that he passed out. He is unsure how long he was down for. He does not think he hit his head. He was able to get himself up and into the chair and called for his . Patient denies any chest pain prior to passing out. He reports that he has had some shortness of breath since February, and was diagnosed with lung cancer and currently undergoing chemo and radiation. His last round of chemo was 5 days ago. He reports that he received 3 radiation treatments last week, on Saturday//Saturday. He was due for another round this morning, but with his episode he decided to be evaluated in the emergency department. On arrival to the ER, the patient reports that he feels almost back to his baseline, though he is still feeling slightly weak. He denies any chest pain or shortness of breath. He denies any DVT or PE history. He is on an 81 mg aspirin daily. ROS: as above PHYSICAL EXAM: Constitutional: Patient appears in no acute distress. HENT: Head: Normocephalic and atraumatic. Eyes: EOMI, PERRL Mouth/Throat: Mucous membranes moist. Neck: Trachea midline. Neck supple. No midline cervical spine tenderness to palpation. Cardiovascular: RRR, No murmurs, rubs or gallops. Intact distal pulses. Pulmonary/Chest: No respiratory distress. Breath sounds clear and equal bilaterally. No wheezes or rales. Abdominal: Abdomen soft, no tenderness, rebound or guarding. Musculoskeletal: No edema, tenderness or deformity noted. Skin: Warm and dry. No rash, erythema, pallor or cyanosis Psychiatric: Appropriate mood and affect for situation. Neurological: Alert and keenly responsive. CN II-XII grossly intact, moving all extremities equally and fully. MDM: - Vitals signs stable. - History obtained via patient. History as above. - Chronic conditions affecting care: renal cell carcinoma; HLD; hypothyroidism; depression; DM-2 - Differential diagnoses include, but are not limited to: ACS; pneumonia; viral syndrome; dysrhythmia; PE; intracranial hemorrhage; CVA - Order placed for continuous cardiac monitoring. At this time, monitor showed rate of 101 bpm with normal sinus rhythm, per my interpretation. - External medical records reviewed. Wellness visit note dated 04/09/2024 was reviewed. Patient had a radical prostatectomy for his prostate cancer in 2021. He was recently diagnosed with oligometastatic lung adenocarcinoma with a solitary metastasis in left inguinal lymph node. - EKG interpreted by myself showed normal sinus rhythm. Rate 77 bpm. QT 396. No acute ischemic changes. Noted to have an incomplete right bundle branch block. - Laboratory workup interpreted by myself showed normal WBC; normal PT/INR; stable electrolytes; hyperglycemia (glucose 314); normal troponin; normal TSH - CXR negative for pneumonia, per my interpretation. Radiology notes re- demonstration of the patient's right hilar fullness consistent with right hilar mass. - UA negative for infection. Noted to have glucosuria and ketonuria. - Patient noted to have anaphylaxis to shellfish. Given concern for potential PE scan in the setting of his syncope and hypoxia, patient was given IV Solu- Medrol and Benadryl for pretreatment for contrast dye loading. - CT PE negative for PE. Right hilar mass again noted. - Patient given 1L NS in ER. - Patient did become significantly orthostatic with orthostatic vital signs. Blood pressures dropped and heart rate elevated. With standing his blood pressure was 92/65 and heart rate was 105. Patient also noted to be hypoxic on room air on reassessment at 89%. He ambulated and his saturations remained at 88 to 89%. He was placed on 2 L nasal cannula. - Viral respiratory panel negative - CT head wo contrast negative for acute pathology - Discussion was had with correctional casework specialist about patient's case and need for admission - Hospitalist, Dr. Mann, consulted for admission - Patient admitted to [facility] for further evaluation and management. ASSESSMENT AND PLAN: Diagnosis: Syncope and collapse; orthostatic hypotension; acute hypoxia Plan: admit Past Med/Surg History Problem List (Updated 04/20/24 @ 13:45 by Yasmine Odonnell MD) Hypoxia (Acute) Orthostatic hypotension (Acute) Syncope and collapse (Acute) Metastatic adenocarcinoma (Chronic) Dyspnea and respiratory abnormalities Adenocarcinoma Inguinal adenopathy Hypoxemia Prostate cancer (Chronic 07/19/14) Renal cell cancer "DIAGNOSIS: Renal cell carcinoma, clear cell carcinoma, [id number] Radical nephrectomy - 10/2014 (Dr. Tena)" Ejaculatory disorder (Acute) Elevated prostate specific antigen (PSA) (Acute) Nephrolithiasis (Acute) Tubular adenoma of colon (Acute) Diabetes mellitus type 2, controlled Vitamin B12 deficiency Encounter for pre-operative examination H/O prostatectomy Low back pain (Acute) Hypothyroidism (Acute) Hyperlipidemia (Acute) Depression (Acute) Medical History Pre-diabetes Diverticulosis Cancer of kidney Prostate CA Anxiety Surgical History H/O radical prostatectomy Hx of vasectomy History of surgical removal of ganglion cyst History of colonoscopy H/O partial nephrectomy History of tonsillectomy History of tooth extraction Family History Father Congestive heart failure Disc degeneration, lumbar Mother Kyphoscoliosis Osteoporosis Allergies Son Asthma Brother Cerebral arterial aneurysm Other No family history of adverse response to anesthesia Denies family history of Colon cancer Ovarian cancer Prostate cancer Myocardial infarction Breast cancer Social History Smoking Status: Former smoker Tobacco Type: Cigarettes Age Started Using Tobacco: 19; Age Quit Using Tobacco: 56; packs per day: 1; Second Hand Exposure: No; Do You Dip or Chew Tobacco: No; Hx Alcohol Use: Yes Alcohol type: beer and hard liquor Hx Substance Use: No Preferred Language: Indonesian Communication Ability: Effective Visual Impairment: No Limitations Hearing Ability: Normal Invoice Classification Clerk Required: No Beliefs That Will Affect Care: None marital status: Current Living Situation: Spouse current occupational status: retired current occupation: [employer]er [employer] How many Children do You have: 2 Feels Safe at Home: Yes Childhood Exposure to Second-Hand Smoke: No Dental Care, Regularly: Yes Physical Activity Frequency: 1-2 Times per Week Seatbelt Use: always Sunscreen Use: Yes Assistive Devices: None Allergies Allergies Allergy/AdvReac Type Severity Reaction Status Date / Time shellfish derived Allergy Severe TIGHTNESS Unverified 04/09/24 08:56 IN CHEST/SWELLING OF THROAT Home Meds Home Medications Medication Instructions Recorded Confirmed aspirin 81 mg tablet,delayed 81 mg PO QAM ##0 03/16/15 04/20/24 release cholecalciferol (vitamin D3) 25 25 mcg PO QAM 03/06/22 04/20/24 mcg (1,000 unit) tablet (Vitamin D3) cyanocobalamin (vitamin B-12) 250 250 mcg PO QAM 03/06/22 04/20/24 mcg tablet (Vitamin B-12) docusate sodium 100 mg capsule 100 mg PO BID PRN Constipation 01/11/23 04/20/24 (Colace) tadalafil 20 mg tablet 20 mg PO DAILY PRN Erectile 10/15/23 04/20/24 Dysfunction albuterol sulfate 90 mcg/actuation 2 puff inhalation Q6H PRN SOB 03/24/24 04/20/24 aerosol inhaler Vitamin C 1 tab PO DAILY 04/20/24 04/20/24 dexamethasone 4 mg tablet 4 mg PO UD 04/20/24 04/20/24 ondansetron 8 mg disintegrating 8 mg PO Q8H PRN n/v 04/20/24 04/20/24 tablet prochlorperazine maleate 10 mg 10 mg PO Q6H PRN n/v 04/20/24 04/20/24 tablet Previous Rx's Medication Instructions Recorded fluoxetine 40 mg capsule 40 mg PO QAM #90 caps 12/11/23 levothyroxine 125 mcg tablet 125 mcg PO QAM #90 tabs 12/11/23 simvastatin 20 mg tablet 20 mg PO QAM #90 tabs 12/11/23 Oxygen Home #1 ea 02/27/24 Results & Data (ED) Vital Signs Vital Signs - 24 hr 04/20/24 08:05 04/20/24 08:30 04/20/24 08:32 Temperature Source Oral Pulse Rate - Lying Pulse Rate - Sitting Pulse Rate - Standing Pulse Rate 78 84 Pulse Rate [Exercises] Pulse Rate from SpO2 Sensor Respiratory Rate 20 Respiratory Rate [Exercises] Respiratory Effort / Characteristics Non-Labored Spontaneous Respiratory Depth Normal Blood Pressure - Lying Blood Pressure - Sitting Blood Pressure- Standing Blood Pressure 100/75 141/83 H Blood Pressure Mean 83 110 Pulse Oximetry 96 Pulse Oximetry [Exercises] Oxygen Delivery Method Nasal Cannula Oxygen Flow Rate 2 Sepsis Recent Fever Within 48 Hours No Sepsis New/Unexplained Change in Mental Status N/A Sepsis Action Taken by Nursing No Action Required 04/20/24 08:32 04/20/24 08:33 04/20/24 09:00 Temperature Source Pulse Rate - Lying Pulse Rate - Sitting Pulse Rate - Standing Pulse Rate 88 92 H Pulse Rate [Exercises] Pulse Rate from SpO2 Sensor 87 93 H Respiratory Rate 24 22 Respiratory Rate [Exercises] Respiratory Effort / Characteristics Respiratory Depth Blood Pressure - Lying Blood Pressure - Sitting Blood Pressure- Standing Blood Pressure 141/83 H Blood Pressure Mean 110 Pulse Oximetry 93 93 Pulse Oximetry [Exercises] Oxygen Delivery Method Oxygen Flow Rate Sepsis Recent Fever Within 48 Hours Sepsis New/Unexplained Change in Mental Status Sepsis Action Taken by Nursing 04/20/24 09:00 04/20/24 09:00 04/20/24 10:06 Temperature Source Pulse Rate - Lying Pulse Rate - Sitting Pulse Rate - Standing Pulse Rate Pulse Rate [Exercises] Pulse Rate from SpO2 Sensor 91 H Respiratory Rate Respiratory Rate [Exercises] Respiratory Effort / Characteristics Respiratory Depth Blood Pressure - Lying Blood Pressure - Sitting Blood Pressure- Standing Blood Pressure 140/95 140/95 Blood Pressure Mean 102 102 Pulse Oximetry 91 Pulse Oximetry [Exercises] Oxygen Delivery Method Oxygen Flow Rate Sepsis Recent Fever Within 48 Hours Sepsis New/Unexplained Change in Mental Status Sepsis Action Taken by Nursing 04/20/24 10:08 04/20/24 10:27 04/20/24 10:30 Temperature Source Pulse Rate - Lying Pulse Rate - Sitting Pulse Rate - Standing Pulse Rate 95 H Pulse Rate [Exercises] Pulse Rate from SpO2 Sensor 95 H Respiratory Rate 25 H Respiratory Rate [Exercises] Respiratory Effort / Characteristics Respiratory Depth Blood Pressure - Lying Blood Pressure - Sitting Blood Pressure- Standing Blood Pressure 154/100 H 119/88 Blood Pressure Mean 124 102 Pulse Oximetry 90 Pulse Oximetry [Exercises] Oxygen Delivery Method Oxygen Flow Rate Sepsis Recent Fever Within 48 Hours Sepsis New/Unexplained Change in Mental Status Sepsis Action Taken by Nursing 04/20/24 10:54 04/20/24 11:00 04/20/24 11:00 Temperature Source Pulse Rate - Lying Pulse Rate - Sitting Pulse Rate - Standing Pulse Rate 98 H 96 H Pulse Rate [Exercises] Pulse Rate from SpO2 Sensor 98 H 98 H Respiratory Rate 28 H 20 Respiratory Rate [Exercises] Respiratory Effort / Characteristics Respiratory Depth Blood Pressure - Lying Blood Pressure - Sitting Blood Pressure- Standing Blood Pressure 154/93 H Blood Pressure Mean 103 Pulse Oximetry 89 L 91 Pulse Oximetry [Exercises] Oxygen Delivery Method Oxygen Flow Rate Sepsis Recent Fever Within 48 Hours Sepsis New/Unexplained Change in Mental Status Sepsis Action Taken by Nursing 04/20/24 11:00 04/20/24 11:00 04/20/24 11:36 Temperature Source Pulse Rate - Lying Pulse Rate - Sitting Pulse Rate - Standing Pulse Rate 100 H Pulse Rate [Exercises] Pulse Rate from SpO2 Sensor 101 H Respiratory Rate 27 H Respiratory Rate [Exercises] Respiratory Effort / Characteristics Respiratory Depth Blood Pressure - Lying Blood Pressure - Sitting Blood Pressure- Standing Blood Pressure 154/93 H 154/93 H Blood Pressure Mean 103 103 Pulse Oximetry 95 Pulse Oximetry [Exercises] Oxygen Delivery Method Oxygen Flow Rate Sepsis Recent Fever Within 48 Hours Sepsis New/Unexplained Change in Mental Status Sepsis Action Taken by Nursing 04/20/24 11:39 04/20/24 11:39 04/20/24 11:41 Temperature Source Pulse Rate - Lying Pulse Rate - Sitting Pulse Rate - Standing Pulse Rate Pulse Rate [Exercises] Pulse Rate from SpO2 Sensor Respiratory Rate Respiratory Rate [Exercises] Respiratory Effort / Characteristics Respiratory Depth Blood Pressure - Lying Blood Pressure - Sitting Blood Pressure- Standing Blood Pressure 129/75 129/75 92/65 L Blood Pressure Mean 99 99 81 Pulse Oximetry Pulse Oximetry [Exercises] Oxygen Delivery Method Oxygen Flow Rate Sepsis Recent Fever Within 48 Hours Sepsis New/Unexplained Change in Mental Status Sepsis Action Taken by Nursing 04/20/24 11:47 04/20/24 11:47 04/20/24 11:54 Temperature Source Pulse Rate - Lying 99 H Pulse Rate - Sitting 103 H Pulse Rate - Standing 105 H Pulse Rate 101 H Pulse Rate [Exercises] 102 H Pulse Rate from SpO2 Sensor 101 H Respiratory Rate 22 Respiratory Rate [Exercises] 18 Respiratory Effort / Characteristics Respiratory Depth Blood Pressure - Lying 149/99 H Blood Pressure - Sitting 129/75 Blood Pressure- Standing 92/65 L Blood Pressure Blood Pressure Mean Pulse Oximetry 93 Pulse Oximetry [Exercises] 89 L Oxygen Delivery Method Room Air Oxygen Flow Rate Sepsis Recent Fever Within 48 Hours Sepsis New/Unexplained Change in Mental Status Sepsis Action Taken by Nursing 04/20/24 12:00 04/20/24 12:00 04/20/24 12:00 Temperature Source Pulse Rate - Lying Pulse Rate - Sitting Pulse Rate - Standing Pulse Rate Pulse Rate [Exercises] Pulse Rate from SpO2 Sensor Respiratory Rate Respiratory Rate [Exercises] Respiratory Effort / Characteristics Respiratory Depth Blood Pressure - Lying Blood Pressure - Sitting Blood Pressure- Standing Blood Pressure 133/92 133/92 133/92 Blood Pressure Mean 97 97 97 Pulse Oximetry Pulse Oximetry [Exercises] Oxygen Delivery Method Oxygen Flow Rate Sepsis Recent Fever Within 48 Hours Sepsis New/Unexplained Change in Mental Status Sepsis Action Taken by Nursing 04/20/24 12:03 04/20/24 12:53 Temperature Source Pulse Rate - Lying Pulse Rate - Sitting Pulse Rate - Standing Pulse Rate 101 H 101 H Pulse Rate [Exercises] Pulse Rate from SpO2 Sensor 101 H Respiratory Rate 22 Respiratory Rate [Exercises] Respiratory Effort / Characteristics Respiratory Depth Blood Pressure - Lying Blood Pressure - Sitting Blood Pressure- Standing Blood Pressure Blood Pressure Mean Pulse Oximetry 93 Pulse Oximetry [Exercises] Oxygen Delivery Method Oxygen Flow Rate Sepsis Recent Fever Within 48 Hours Sepsis New/Unexplained Change in Mental Status Sepsis Action Taken by Nursing Laboratory Data 04/20/24 08:25 04/20/24 08:25 Lab Results 04/20/24 04/20/24 04/20/24 Range/Units 08:25 10:10 12:45 WBC 9.15 (4.8-10.8) K/ul RBC 5.11 (4.70-6.10) M/uL Hgb 15.4 (14.0-18.0) g/dl Hct 46.3 (42.0-52.0) % MCV 90.6 (80.0-100.0) fL MCH 30.1 (25.0-34.0) pg MCHC 33.3 (32.0-36.0) g/dL RDW Std Deviation 41.9 (36.4-46.3) fL RDW Coeff of Yuriy 12.7 (11.5-14.5) % Plt Count 299 (130-400) K/uL MPV 10.1 (9.4-12.4) fL Immature Gran % (Auto) 0.7 % Neut % (Auto) 84.6 % Lymph % (Auto) 10.5 % [place] % (Auto) 1.6 % Eos % (Auto) 1.7 % Baso % (Auto) 0.9 % Neut # (Auto) 7.74 H (1.40-6.50) K/uL Lymph # (Auto) 0.96 L (1.20-3.40) K/uL [place] # (Auto) 0.15 (0.11-0.59) K/uL Eos # (Auto) 0.16 (0.00-0.50) K/uL Baso # (Auto) 0.08 (0.00-0.20) K/uL Immature Gran # (Auto) 0.06 (0.01-0.20) K/uL PT 10.7 (9.0-12.0) Seconds INR 1.0 (0.9-1.1) Sodium 135 L (136-145) mmol/L Potassium 4.8 (3.5-5.1) mmol/L Chloride 98 (98-107) mmol/L Carbon Dioxide 28 (21-32) mmol/L Anion Gap 9 (3-11) BUN 26 H (6-23) mg/dl Creatinine 0.91 (0.6-1.4) mg/dl Est Cr Clr Drug Dosing 85.3 ml/min eGFR 89.55 BUN/Creatinine Ratio 28.6 H (10-20) Glucose 314 H* (70-99(Fasting)) mg/dl Calcium 10.0 (8.6-10.3) mg/dl Magnesium 1.8 (1.7-2.4) mg/dl Total Bilirubin 1.1 H (0.2-1.0) mg/dl AST 15 (13-39) U/L ALT 16 (7-52) U/L Alkaline Phosphatase 52 (34-104) U/L Troponin I High Sens 5.6 (0-20) pg/ml Total Protein 7.6 (6.0-8.3) gm/dl Albumin 4.2 (3.4-5.0) gm/dl Globulin 3.4 (2.5-4.0) gm/dl Albumin/Globulin Ratio 1.2 (0.9-2) TSH 4.380 (0.300-4.500) uIu/ml Urine Color Yellow Urine Appearance Clear (Clear) Urine pH 5.5 (4.5-7.5) Ur Specific [place] > 1.045 H (1.000-1.030) Urine Protein Negative (Negative) Urine Glucose (UA) 3+ H (Negative) Urine Ketones 1+ H (Negative) Urine Blood Negative (Negative) Urine Nitrite Negative (Negative) Urine Bilirubin Negative (Negative) Urine Urobilinogen Negative (Negative) Ur Leukocyte Esterase Negative (Negative) Adenovirus (PCR) Not Detected (NotDetected) B. pertussis DNA (PCR) Not Detected (NotDetected) B.parapertussis DNA PCR Not Detected (NotDetected) C. pneumoniae DNA (PCR) Not Detected (NotDetected) Coronavirus OC43 (PCR) Not Detected (NotDetected) Coronavirus HKU1 (PCR) Not Detected (NotDetected) Coronavirus 229E (PCR) Not Detected (NotDetected) SARS-CoV-2 (PCR) Not Detected (NotDetected) Coronavirus NL63 (PCR) Not Detected (NotDetected) Human Metapneumovir PCR Not Detected (NotDetected) Influenza Type A (PCR) Not Detected (NotDetected) Influenza Type B (PCR) Not Detected (NotDetected) M. pneumoniae (PCR) Not Detected (NotDetected) Parainfluenza 1 (PCR) Not Detected (NotDetected) Parainfluenza 2 (PCR) Not Detected (NotDetected) Parainfluenza 3 (PCR) Not Detected (NotDetected) Parainfluenza 4 (PCR) Not Detected (NotDetected) RSV (PCR) Not Detected (NotDetected) Entero/Rhino (PCR) Not Detected (NotDetected) Administered Medications Discontinued Medications Diphenhydramine HCl (Diphenhydramine 50 Mg/Ml Vial) 50 mg IV NOW STA Stop: 04/20/24 08:59 Last Admin: 04/20/24 09:11 Dose: 50 mg Documented By: ZEINA Sodium Chloride (Nss) 1,000 mls @ 999 mls/hr IV .Q1H1M ONE Stop: 04/20/24 13:42 Last Admin: 04/20/24 13:16 Dose: 999 mls/hr Documented By: ZEINA Ioversol (Optiray 320 125ml) 119 ml IV ONCE ONE Stop: 04/20/24 09:38 Last Admin: 04/20/24 09:37 Dose: 119 ml Documented By: ANTHONY Methylprednisolone (Methylprednisolone 125 Mg/2 Ml Vial) 60 mg IV NOW STA Stop: 04/20/24 08:59 Last Admin: 04/20/24 09:11 Dose: 60 mg Documented By: THERESEW Imaging Data Radiologist's Impression: Chest X-Ray 04/20/24 08:24 XR chest 1V portable CLINICAL HISTORY: Weakness. Lung cancer. COMPARISON STUDY: Chest radiograph March 23, 2024. Chest CT February 23, 2024. FINDINGS: Elevation of the right hemidiaphragm is unchanged. Asymmetric right hilar fullness consistent with known right hilar mass is better depicted on prior chest CT. There is no consolidation to suggest pneumonia. There is no evidence for pulmonary edema. Cardiomediastinal silhouette is stable. IMPRESSION: 1. Redemonstration of right hilar fullness consistent with a right hilar mass, better depicted on prior CT. 2. Stable elevation of the right hemidiaphragm. 3. No consolidation to suggest pneumonia. ACT 112: Negative or not required by law. Electronically signed by: Shoaib Holly M.D. 04/20/2024 8:43 AM Chest CTA 04/20/24 08:57 CT ANGIOGRAPHY OF THE CHEST, PULMONARY EMBOLUS PROTOCOL CLINICAL HISTORY: Syncope. Lung cancer. Evaluate for pulmonary embolus. COMPARISON STUDY: Chest CT February 23, 2024. PET/CT March 04, 2024. Chest radiograph performed earlier today. TECHNIQUE: Following IV administration of 119 mL of Optiray, helical axial images of the chest were obtained utilizing the pulmonary embolus protocol. Maximal intensity projections and sagittal and coronal reformats were viewed on an independent 3D workstation. IV contrast was administered without complication. Automated exposure control was utilized for the study. A dose lowering technique was utilized adhering to the principles of ALARA. CT DOSE: 797.78 mGy.cm FINDINGS: No pulmonary emboli identified. There is no thoracic aortic dissection. Mild cardiomegaly is again noted. There is no pericardial effusion. A 5.1 x 4 cm right hilar mass is similar to CT of February 23, 2024. As before, this lesion encases the adjacent pulmonary vessels bronchi. Adjacent 1.4 cm nodule is unchanged. Mild adjacent right upper lobe groundglass opacity is similar to prior exam. Multiple small pulmonary nodules measuring up to 5 mm are unchanged. No new pulmonary nodules are present. There is no pneumothorax or pleural effusion. Mild elevation of the right hemidiaphragm is unchanged. Visualized portions of the upper abdomen are unremarkable with exception of a gallstone within the gallbladder. IMPRESSION: 1. No pulmonary emboli identified. 2. 5.1 cm right hilar mass, similar in appearance to prior chest CT of February 23, 2024. Mild adjacent right upper lobe opacity which is also similar to prior exam. 3. No change in moderate elevation of the right hemidiaphragm. ACT 112: Negative or not required by law. Electronically signed by: Shoabi Holly M.D. 04/20/2024 10:[address] 04/20/24 13:22 CT head/brain wo con CLINICAL HISTORY: 73 years-old Male with fall from standing. Acute head trauma status post fall TECHNIQUE: Multiple axial CT images of the head were obtained without contrast. A dose lowering technique was utilized adhering to the principles of ALARA. CT DOSE: 625.8 mGy.cm COMPARISON: Brain MRI 03/14/2024 FINDINGS: No acute intracranial hemorrhage, midline shift, intracranial mass, hydrocephalus, territorial ischemia or abnormal extra-axial collection. Involutional changes with mild chronic microvascular ischemic disease. The calvarium is intact. The paranasal sinuses, mastoid air cells, and middle ear cavities are clear. IMPRESSION: No acute intracranial abnormality or calvarial fracture. ACT 112: Negative or not required by law. The above report was generated using voice recognition software. It may contain grammatical, syntax or spelling errors. Electronically signed by: Hrarison Marquez M.D. 04/20/2024 2:01 PM Discharge Plan Visit Data Chief Complaint: Syncope Stated Complaint: CONSTIPATED, VOMITING, PASSED OUT, SOB ED Provider: Yasmine Odonnell Discharge Problem: Syncope and collapse, Orthostatic hypotension, Hypoxia Forms Stand Alone Forms: [email or web address] Prescriptions Prescriptions: No Action albuterol sulfate 90 mcg/actuation HFA aerosol inhaler 2 puff inhalation Q6H PRN (Reason: SOB) aspirin 81 mg Tablet,Delayed Release (Dr/Ec) 81 mg PO QAM Qty: 0 fluoxetine 40 mg capsule 40 mg PO QAM Qty: 90 3RF levothyroxine 125 mcg tablet 125 mcg PO QAM Qty: 90 3RF simvastatin 20 mg tablet 20 mg PO QAM Qty: 90 3RF tadalafil 20 mg tablet 20 mg PO DAILY PRN (Reason: Erectile Dysfunction) (DME) Oxygen Home Liters Per Minute See Rx Instructions .MEDSUPPLY Qty: 1 0RF Rx Instructions: 1 L/min with activity and nightly cyanocobalamin (vitamin B-12) [Vitamin B-12] 250 mcg Tablet 250 mcg PO QAM cholecalciferol (vitamin D3) [Vitamin D3] 25 mcg (1,000 unit) Tablet 25 mcg PO QAM docusate sodium [Colace] 100 mg capsule 100 mg PO BID PRN (Reason: Constipation) Rx Instructions: Take twice daily for 2 weeks, then as needed for constipation. prochlorperazine maleate 10 mg tablet 10 mg PO Q6H PRN (Reason: n/v) ondansetron 8 mg tablet,disintegrating 8 mg PO Q8H PRN (Reason: n/v) dexamethasone 4 mg tablet 4 mg PO UD Rx Instructions: TAKE 1 TABLET BY MOUTH DIRECTED 12 HRS AND 6 HRS PRIOR TO PACLITAXEL Vitamin C 1 tab PO DAILY Rx Instructions: otc unknown dose Referrals Referrals: Kamaljit Eason MD [Primary Care Provider] -
[2024-04-20] MEDS: OPTIRAY 320 125ml IV ONE (09:37)
[2024-04-20 09:42] LABS: Thyroid Stimulating Hormone 4.38 uIu/ml (0.300-4.500)
--- NOTE | 2024-04-20 10:09 | CT Scan Report ---
CT ANGIOGRAPHY OF THE CHEST, PULMONARY EMBOLUS PROTOCOL CLINICAL HISTORY: Syncope. Lung cancer. Evaluate for pulmonary embolus. COMPARISON STUDY: Chest CT February 23, 2024. PET/CT March 04, 2024. Chest radiograph performed ea jodie today. TECHNIQUE: Following IV administration of 119 mL of Optiray, helical axial images of the chest were o btained utilizing the pulmonary embolus protocol. Maximal intensity projections and sagittal and cor onal reformats were viewed on an independent 3D workstation. IV contrast was administered without co mplication. Automated exposure control was utilized for the study. A dose lowering technique was ut ilized adhering to the principles of ALARA. CT DOSE: 797.78 mGy.cm FINDINGS: No pulmonary emboli identified. There is no thoracic aortic dissection. Mild cardiomegaly is again noted. There is no pericardial effusion. A 5.1 x 4 cm right hilar mass is similar to CT of D ec2023. As before, this lesion encases the adjacent pulmonary vessels bronchi. Adjacent 1.4 cm nodule is unchanged. Mild adjacent right upper lobe groundglass opacity is similar to prior exam. Multiple small pulmonary nodules measuring up to 5 mm are unchanged. No new pulmonary nodules are pre sent. There is no pneumothorax or pleural effusion. Mild elevation of the right hemidiaphragm is unch anged. Visualized portions of the upper abdomen are unremarkable with exception of a gallstone within the gallbladder. IMPRESSION: 1. No pulmonary emboli identified. 2. 5.1 cm right hilar mass, similar in appearance to prior chest CT of February 23, 2024. Mild adjacen t right upper lobe opacity which is also similar to prior exam. 3. No change in moderate elevation of the right hemidiaphragm. ACT 112: Negative or not required by law. Electronically signed by: Shoaib Holly M.D. 04/20/2024 10:08 AM
[2024-04-20 11:35] LABS: Appearance Urine Clear (Clear); Bilirubin Urine Negative (Negative); Blood Urine Negative (Negative); Color Urine Yellow; Glucose Urine UA 3+ (Negative); Ketones Urine 1+ (Negative); Leukocyte Esterase Urine Negative (Negative); Nitrite Urine Negative (Negative); Protein Urine Negative (Negative); Specific Gravity Urine > 1.045 (1.000-1.030); Urobilinogen Urine Negative (Negative); pH Urine 5.5 (4.5-7.5)
[2024-04-20] MEDS: SODIUM CHLORIDE 0.9% 1,000 ML IV ONE (13:16)
--- NOTE | 2024-04-20 13:42 | Electrocardiogram Report ---
Test Reason : Blood Pressure : */* mmHG Vent. Rate : 77 BPM Atrial Rate : 77 BPM P-R Int : 148 ms QRS Dur : 100 ms QT Int : 396 ms P-R-T Axes : 46 -66 56 degrees QTcB Int : 448 ms Poor data quality, interpretation may be adversely affected Normal sinus rhythm Left atrial enlargement Incomplete right bundle branch block Left anterior fascicular block Abnormal ECG When compared with ECG of 23-Feb-2024 10:48, No significant change was found Confirmed by Aurelio Salazar ([id number]) on 04/20/2024 1:41:52 PM Referred By: REFERRED SELF Confirmed By: Aurelio Salazar
--- NOTE | 2024-04-20 14:04 | CT Scan Report ---
CT head/brain wo con CLINICAL HISTORY: 73 years-old Male with fall from standing. Acute head trauma status post fall TECHNIQUE: Multiple axial CT images of the head were obtained without contrast. A dose lowering tech nique was utilized adhering to the principles of ALARA. CT DOSE: 625.8 mGy.cm COMPARISON: Brain MRI 03/14/2024 FINDINGS: No acute intracranial hemorrhage, midline shift, intracranial mass, hydrocephalus, territorial ischem ia or abnormal extra-axial collection. Involutional changes with mild chronic microvascular ischemic disease. The calvarium is intact. The paranasal sinuses, mastoid air cells, and middle ear cavities are clear . IMPRESSION: No acute intracranial abnormality or calvarial fracture. ACT 112: Negative or not required by law. The above report was generated using voice recognition software. It may contain grammatical, syntax o r spelling errors. Electronically signed by: Harrison Marquez M.D. 04/20/2024 2:01 PM
[2024-04-20 14:12] LABS: Adenovirus PCR Not Detected (NotDetected); Bordetella parapertussis PCR Not Detected (NotDetected); Bordetella pertussis PCR Not Detected (NotDetected); Chlamydia pneumoniae PCR Not Detected (NotDetected); Coronavirus 229E PCR Not Detected (NotDetected); Coronavirus CoV-2 (COVID19)PCR Not Detected (NotDetected); Coronavirus HKU1 PCR Not Detected (NotDetected); Coronavirus NL63 PCR Not Detected (NotDetected); Coronavirus OC43PCR Not Detected (NotDetected); Human Metapneumovirus PCR Not Detected (NotDetected); Influenza A PCR Not Detected (NotDetected); Influenza B PCR Not Detected (NotDetected); Mycoplasma pneumoniae PCR Not Detected (NotDetected); Parainfluenza Virus 1 PCR Not Detected (NotDetected); Parainfluenza Virus 2 PCR Not Detected (NotDetected); Parainfluenza Virus 3 PCR Not Detected (NotDetected); Parainfluenza Virus 4 PCR Not Detected (NotDetected); Respiratory Syncytial VirusPCR Not Detected (NotDetected); Rhinovirus/Enterovirus PCR Not Detected (NotDetected)
--- NOTE | 2024-04-20 14:25 | History & Physical Report ---
Date of Service April 20, 2024 Assessment & Plan (1) Episode of syncope: (2) Hypoxia: (3) T2DM (type 2 diabetes mellitus): (4) Metastatic adenocarcinoma: Plan Sekou is a 73-year-old male with PMH of T2DM, lung cancer, prostate cancer, renal cell cancer s/p partial nephrectomy, hypothyroidism, HLD, and depression. He presented on 04/20 for a syncopal episode. Patient reports that he normally has a bowel movement every morning. Today around 6:45 AM, he was sitting on the bathroom, but was unable to have a BM. Normally he takes Dulcolax the night before, which provides relief the following morning., However today he felt constipated. When he got up and walked to his desk, he sat down in his chair, and then subsequently passed out. Full LOC. He believes it was only for a short period of time (5 total minutes on the ground). He discovered vomit in his groin area when he came to. He does not believe he hit his head. He does have a history of orthostatic hypotension, but denies any recent syncopal episodes. #Syncopal episode Head CT revealed no acute findings Orthostatic vitals ordered, pending Echocardiogram ordered, pending DDx includes orthostatic hypotension, vasovagal syncope secondary to constipation, cardiogenic syncope, and side effect of starting chemo/radiation therapy (among other etiologies) Neurochecks q4h for now Continuous telemetry monitoring PT/OT evaluations appreciated Fall precautions #Hypoxia Patient's SpO2 was at 89% on RA on arrival Chest CTA did not reveal acute pulmonary embolism Continuous pulse oximetry Supplemental oxygen as needed to maintain SpO2 >94% ? Secondary to patient's underlying lung cancer Patient reports he does have supplemental oxygen at home, but has not required it recently #T2DM Last A1c at 9.3% on 04/06/2024 Not currently on home diabetic medications Lantus 5 u QAM while inpatient SSI; with target BSG range 110-140mg/dL, CF 50, carb ratio 15 T2DM diet BSG ACHS Adjust regimen as needed #Metastatic adenocarcinoma Currently undergoing chemotherapy/radiation therapy for his lung cancer at [facility] Brain MRI on 03/14/2024 did not reveal evidence of metastatic disease If recurrence of syncope, or clinical deterioration, could consider repeat brain MRI Disposition: Obs - Admit to [facility]Sur telemetry Full code T2DM diet VTE PPx: High risk; Lovenox 40 mg SQ q24h History of Present Illness Chief Complaint: Syncope Primary Care Provider: Kamaljit Eason MD Sekou is a 73-year-old male with PMH of T2DM, lung cancer, prostate cancer, renal cell cancer s/p partial nephrectomy, hypothyroidism, HLD, and depression. He presented on 04/20 for a syncopal episode. Patient reports that he normally has a bowel movement every morning. Today around 6:45 AM, he was sitting on the bathroom, but was unable to have a BM. Normally he takes Dulcolax the night b efore, which provides relief the following morning., However today he felt constipated. When he got up and walked to his desk, he sat down in his chair, and then subsequently passed out. Full LOC. He believes it was only for a short period of time (5 total minutes on the ground). He discovered vomit in his groin area when he came to. He does not believe he hit his head. He does have a history of orthostatic hypotension, but denies any recent syncopal episodes. No sick contacts. Patient is currently undergoing chemotherapy and radiation therapy for his lung cancer at the [facility]. He just had his first treatment of chemo and radiation last week. He has had ongoing SOB since February, and does have supplemental oxygen at home, but he has not been needing it recently. Additionally, he reports that he took all his regular morning medicine today; only short medications for that he was started on 2 antinausea medications for chemo, and 1 medication that he supposed to take 6 to 12 hours prior to chemo infusions. Additionally, he reports he takes half a tablet of Tylenol and half a tablet of Advil PM to help him sleep at night (for his chronic lower back pain). Patient does not ambulate with a walker or cane at baseline. Patient is a former tobacco cigarette smoker, but quit 10 years ago; 40-year pack history. No recent alcohol use. Patient is tachycardic at 101 bpm at time admission; SpO2 93% on RA. ED course: Solu-Medrol 60 mg IV Benadryl 50 mg IV NSS 1000 mL IV ROS: Patient endorses lightheadedness, syncope, visual aura (resolved; yesterday), NGUYEN behind the eyes, SOB (resolved; required O2 this morning), vomiting (patient does not remember this episode), chronic LBP, constipation, and residual numbness in both of his toes (from h/o frostbite). Patient denies fever, chills, night-sweats, chest pain, chest palpitations, SOB at rest or with exertion (at present), cough, pleuritic CP, abdominal pain, nausea, diarrhea, blood in urine/stool, or changes in urinary/bowel habits. Allergies Allergy/AdvReac Type Severity Reaction Status Date / Time shellfish derived Allergy Severe TIGHTNESS Unverified 04/09/24 08:56 IN CHEST/SWELLING OF THROAT Home Medications Medication Instructions Recorded Confirmed Type aspirin 81 mg tablet,delayed 81 mg PO QAM ##0 03/16/15 04/20/24 History release cholecalciferol (vitamin D3) 25 25 mcg PO QAM 03/06/22 04/20/24 History mcg (1,000 unit) tablet (Vitamin D3) cyanocobalamin (vitamin B-12) 250 250 mcg PO QAM 03/06/22 04/20/24 History mcg tablet (Vitamin B-12) docusate sodium 100 mg capsule 100 mg PO BID PRN Constipation 01/11/23 04/20/24 History (Colace) tadalafil 20 mg tablet 20 mg PO DAILY PRN Erectile 10/15/23 04/20/24 History Dysfunction fluoxetine 40 mg capsule 40 mg PO QAM #90 caps 12/11/23 04/20/24 Rx levothyroxine 125 mcg tablet 125 mcg PO QAM #90 tabs 12/11/23 04/20/24 Rx simvastatin 20 mg tablet 20 mg PO QAM #90 tabs 12/11/23 04/20/24 Rx Oxygen Home #1 ea 02/27/24 04/09/24 Rx albuterol sulfate 90 mcg/actuation 2 puff inhalation Q6H PRN SOB 03/24/24 04/20/24 History aerosol inhaler Vitamin C 1 tab PO DAILY 04/20/24 04/20/24 History dexamethasone 4 mg tablet 4 mg PO UD 04/20/24 04/20/24 History ondansetron 8 mg disintegrating 8 mg PO Q8H PRN n/v 04/20/24 04/20/24 History tablet prochlorperazine maleate 10 mg 10 mg PO Q6H PRN n/v 04/20/24 04/20/24 History tablet Past Med/Surg History Problem List (Updated 04/20/24 @ 15:12 by Rivas Hall PA-C) T2DM (type 2 diabetes mellitus) Episode of syncope Hypoxia (Acute) Orthostatic hypotension (Acute) Syncope and collapse (Acute) Metastatic adenocarcinoma (Chronic) Dyspnea and respiratory abnormalities Adenocarcinoma Inguinal adenopathy Hypoxemia Prostate cancer (Chronic 07/19/14) Renal cell cancer "DIAGNOSIS: Renal cell carcinoma, clear cell carcinoma, pT3aN0 Radical nephrectomy - 10/2014 (Dr. Tena)" Ejaculatory disorder (Acute) Elevated prostate specific antigen (PSA) (Acute) Nephrolithiasis (Acute) Tubular adenoma of colon (Acute) Diabetes mellitus type 2, controlled Vitamin B12 deficiency Encounter for pre-operative examination H/O prostatectomy Low back pain (Acute) Hypothyroidism (Acute) Hyperlipidemia (Acute) Depression (Acute) Medical History Pre-diabetes Diverticulosis Cancer of kidney Prostate CA Anxiety Surgical History H/O radical prostatectomy Hx of vasectomy History of surgical removal of ganglion cyst History of colonoscopy H/O partial nephrectomy History of tonsillectomy History of tooth extraction Family History Father Congestive heart failure Disc degeneration, lumbar Mother Kyphoscoliosis Osteoporosis Allergies Son Asthma Brother Cerebral arterial aneurysm Other No family history of adverse response to anesthesia Denies family history of Colon cancer Ovarian cancer Prostate cancer Myocardial infarction Breast cancer Social History Smoking Status: Former smoker Tobacco Type: Cigarettes Age Started Using Tobacco: 19; Age Quit Using Tobacco: 56; packs per day: 1; Second Hand Exposure: No; Do You Dip or Chew Tobacco: No; Hx Alcohol Use: Yes Alcohol type: beer and hard liquor Hx Substance Use: No Preferred Language: Yi Communication Ability: Effective Visual Impairment: No Limitations Hearing Ability: Normal Manager Lab Required: No Beliefs That Will Affect Care: None marital status: Current Living Situation: Spouse current occupational status: retired current occupation: [employer] Work[employer] How many Children do You have: 2 Feels Safe at Home: Yes Childhood Exposure to Second-Hand Smoke: No Dental Care, Regularly: Yes Physical Activity Frequency: 1-2 Times per Week Seatbelt Use: always Sunscreen Use: Yes Assistive Devices: None Review of Systems Review of Systems: See HPI above Physical Exam Physical Exam: General: no acute distress; non-toxic appearing; well-nourished; cooperative HEENT: normocephalic, atraumatic; no scleral icterus; PERRLA w/ EOMs intact; vision and hearing grossly intact Neck: supple; no lymphadenopathy; trachea midline Skin: warm, dry without signs of tenting; no cyanosis; no rashes, bruising, lesions, or erythema noted CV: chest wall NTP; RR, mildly tachycardic around 104 bpm; S1/S2 normal; no murmurs/rubs/gallops; pulses intact and symmetric at radial, DP, and PT Lungs: no acute respiratory distress; symmetrical chest wall expansion; clear breath sounds across all lung nevarez w/o adventitious sounds; no wheezing ABD: Soft, NTP; BS present; no rebound/guarding; no distention MSK: no tics or fasciculations; no edema noted in the LEs b/l, nonerythematous Neuro: A&Ox3; normal mood and affect; fluent speech; no focal deficits; sensation grossly intact in the LEs b/l Results & Data Results & Data Vital Signs (Past 12 Hours) Vital Signs Pulse Pulse Resp Resp BP Pulse Ox Pulse Ox 04/20/24 12:53 101 H 04/20/24 12:03 101 H 22 93 04/20/24 12:00 133/92 04/20/24 12:00 133/92 04/20/24 12:00 133/92 04/20/24 11:54 101 H 22 93 04/20/24 11:47 102 H 18 89 L 04/20/24 11:41 92/65 L 04/20/24 11:39 129/75 04/20/24 11:39 129/75 04/20/24 11:36 100 H 27 H 95 04/20/24 11:00 154/93 H 04/20/24 11:00 154/93 H 04/20/24 11:00 154/93 H 04/20/24 11:00 96 H 20 91 04/20/24 10:54 98 H 28 H 89 L 04/20/24 10:30 119/88 04/20/24 10:27 95 H 25 H 90 04/20/24 10:08 154/100 H 04/20/24 10:06 91 04/20/24 09:00 140/95 04/20/24 09:00 140/95 04/20/24 09:00 92 H 22 93 04/20/24 08:33 88 24 93 04/20/24 08:32 141/83 H 04/20/24 08:32 141/83 H 04/20/24 08:30 84 04/20/24 08:05 78 20 100/75 96 O2 Del Method O2 Flow Rate 04/20/24 12:53 04/20/24 12:03 04/20/24 12:00 04/20/24 12:00 04/20/24 12:00 04/20/24 11:54 04/20/24 11:47 Room Air 04/20/24 11:41 04/20/24 11:39 04/20/24 11:39 04/20/24 11:36 04/20/24 11:00 04/20/24 11:00 04/20/24 11:00 04/20/24 11:00 04/20/24 10:54 04/20/24 10:30 04/20/24 10:27 04/20/24 10:08 04/20/24 10:06 04/20/24 09:00 04/20/24 09:00 04/20/24 09:00 04/20/24 08:33 04/20/24 08:32 04/20/24 08:32 04/20/24 08:30 04/20/24 08:05 Nasal Cannula 2 Laboratory Results Abnormal lab results 04/20/24 04/20/24 Range/Units 08:25 10:10 Neut # (Auto) 7.74 H (1.40-6.50) K/uL Lymph # (Auto) 0.96 L (1.20-3.40) K/uL Sodium 135 L (136-145) mmol/L BUN 26 H (6-23) mg/dl BUN/Creatinine Ratio 28.6 H (10-20) Glucose 314 H* (70-99(Fasting)) mg/dl Total Bilirubin 1.1 H (0.2-1.0) mg/dl Ur Specific Gantt > 1.045 H (1.000-1.030) Urine Glucose (UA) 3+ H (Negative) Urine Ketones 1+ H (Negative) Diagnostic Findings Chest X-Ray 04/20/24 08:24 XR chest 1V portable CLINICAL HISTORY: Weakness. Lung cancer. COMPARISON STUDY: Chest radiograph March 23, 2024. Chest CT February 23, 2024. FINDINGS: Elevation of the right hemidiaphragm is unchanged. Asymmetric right hilar fullness consistent with known right hilar mass is better depicted on prior chest CT. There is no consolidation to suggest pneumonia. There is no evidence for pulmonary edema. Cardiomediastinal silhouette is stable. IMPRESSION: 1. Redemonstration of right hilar fullness consistent with a right hilar mass, better depicted on prior CT. 2. Stable elevation of the right hemidiaphragm. 3. No consolidation to suggest pneumonia. ACT 112: Negative or not required by law. Electronically signed by: Shoaib Holly M.D. 04/20/2024 8:43 AM Chest CTA 04/20/24 08:57 CT ANGIOGRAPHY OF THE CHEST, PULMONARY EMBOLUS PROTOCOL CLINICAL HISTORY: Syncope. Lung cancer. Evaluate for pulmonary embolus. COMPARISON STUDY: Chest CT February 23, 2024. PET/CT March 04, 2024. Chest radiograph performed earlier today. TECHNIQUE: Following IV administration of 119 mL of Optiray, helical axial images of the chest were obtained utilizing the pulmonary embolus protocol. Maximal intensity projections and sagittal and coronal reformats were viewed on an independent 3D workstation. IV contrast was administered without complication. Automated exposure control was utilized for the study. A dose lowering technique was utilized adhering to the principles of ALARA. CT DOSE: 797.78 mGy.cm FINDINGS: No pulmonary emboli identified. There is no thoracic aortic dissection. Mild cardiomegaly is again noted. There is no pericardial effusion. A 5.1 x 4 cm right hilar mass is similar to CT of February 23, 2024. As before, this lesion encases the adjacent pulmonary vessels bronchi. Adjacent 1.4 cm nodule is unchanged. Mild adjacent right upper lobe groundglass opacity is similar to prior exam. Multiple small pulmonary nodules measuring up to 5 mm are unchanged. No new pulmonary nodules are present. There is no pneumothorax or pleural effusion. Mild elevation of the right hemidiaphragm is unchanged. Visualized portions of the upper abdomen are unremarkable with exception of a gallstone within the gallbladder. IMPRESSION: 1. No pulmonary emboli identified. 2. 5.1 cm right hilar mass, similar in appearance to prior chest CT of February 23, 2024. Mild adjacent right upper lobe opacity which is also similar to prior exam. 3. No change in moderate elevation of the right hemidiaphragm. ACT 112: Negative or not required by law. Electronically signed by: Shoaib Holly M.D. 04/20/2024 10:[address] 04/20/24 13:22 CT head/brain wo con CLINICAL HISTORY: 73 years-old Male with fall from standing. Acute head trauma status post fall TECHNIQUE: Multiple axial CT images of the head were obtained without contrast. A dose lowering technique was utilized adhering to the principles of ALARA. CT DOSE: 625.8 mGy.cm COMPARISON: Brain MRI 03/14/2024 FINDINGS: No acute intracranial hemorrhage, midline shift, intracranial mass, hydrocephalus, territorial ischemia or abnormal extra-axial collection. Involutional changes with mild chronic microvascular ischemic disease. The calvarium is intact. The paranasal sinuses, mastoid air cells, and middle ear cavities are clear. IMPRESSION: No acute intracranial abnormality or calvarial fracture. ACT 112: Negative or not required by law. The above report was generated using voice recognition software. It may contain grammatical, syntax or spelling errors. Electronically signed by: Harrison Marquez M.D. 04/20/2024 2:01 PM ECG Additional Comments: ECG revealed NSR at 77 bpm; QTc 448 Code Status & VTE Plan VTE Prophylaxis Plan VTE Prophylaxis will be ordered: Yes Supervising Physician Co-Signing Physician Notes I have personally seen, evaluated and examined the patient. I have also personally discussed the management of the patient with the resident physician/ANALI and I agree with the exam findings documented in the history and physical examination and the documented assessment and plan unless otherwise stated below. Brief Exam: In general pleasant 73-year-old male is alert oriented x 3 at time of examination. He does state he has had difficulty with orthostatic hypotension in the past. We did recommend FERNANDO hose. We recommended staying well-hydrated. We recommended upon standing to stand there for a few seconds holding onto something to make sure he is not lightheaded prior to ambulating. In addition if this becomes refractory for him medications can be an option. Patient is asymptomatic at this time. HEENT: Normocephalic atraumatic. Heart: Regular rate and rhythm no murmur or ectopy or rub. Lungs: Clear bilaterally. Abdomen: Soft nontender positive bowel sounds. No appreciable organomegaly. Extremities: Intact strength 5 out of 5 x 4. No edema. Neurologically: Alert and oriented x 3 with no focal deficit whatsoever. Assessment/plan: As discussed above. Will check orthostatic vitals every 6 hours. Be called if positive. Echocardiogram. Fall precautions. Please refer to orders for further planning. PG Care Time/CCT Total # of Minutes Spent Total Time Spent with Patient: Total time spent is greater than 50% in coordination of care (as documented) at patient's floor/unit and/or counseling patient: Coding [place] [address] INT INP/OBS CARE 3/75MIN Patient Type Established Medical Decision Making High Complexity Diagnoses Episode of syncope R55 Hypoxia R09.02 T2DM (type 2 diabetes mellitus) E11.9 Metastatic adenocarcinoma C79.9
[2024-04-20] MEDS: MAGNESIUM SULFATE / D5W 1 GM/100 ML BAG IV ONE (15:40)
--- NOTE | 2024-04-20 17:41 | XCELERA ---
[id number] \\[email or web address]\[id number]
[2024-04-20] MEDS ORDERED: GLUCAGON FOR INJ 1 MG VIAL SQ PRN (17:55)
[2024-04-20] MEDS ORDERED: DEXTROSE 50% 50 ML SYRINGE IV PRN (17:55)
[2024-04-20] MEDS ORDERED: PROCHLORPERAZINE MALEATE 10 MG TAB PO PRN (17:55)
[2024-04-20] MEDS ORDERED: GLUCOSE 40% GEL 15 GM TUBE PO PRN (17:55)
[2024-04-20] MEDS ORDERED: ALBUTEROL HFA 8 GM INHALER INH PRN (17:55)
[2024-04-20] MEDS ORDERED: GLUCOSE 10 TAB/TUBE PO PRN (17:55)
[2024-04-20] MEDS ORDERED: CARBOHYDRATES FOR HYPOGLYCEMIA PO PRN (17:55)
[2024-04-20] MEDS: INSULIN ASPART PER UNIT CHARGE SC SCH (19:10)
[2024-04-20] MEDS: ACETAMINOPHEN 325 MG TAB PO PRN (19:52)
[2024-04-20] MEDS ORDERED: DOCUSATE SODIUM 100 MG CAP PO PRN (21:00)
[2024-04-20] MEDS: ENOXAPARIN INJ 40 MG/0.4 ML SYR SQ SCH (21:46)
[2024-04-21 07:45] VITALS: RESP 18
[2024-04-21 08:32] LABS: Hematocrit (blood only) 42.4 % (42.0-52.0); Hemoglobin 14.3 g/dl (14.0-18.0); Mean Corpuscular Hemoglobin 30.1 pg (25.0-34.0); Mean Corpuscular Hgb Conc 33.7 g/dL (32.0-36.0); Mean Corpuscular Volume 89.3 fL (80.0-100.0); Mean Platelet Volume 10.1 fL (9.4-12.4); Platelet Count 273 K/uL (130-400); RDW Coefficient of Variation 12.8 % (11.5-14.5); Red Blood Count 4.75 M/uL (4.70-6.10); White Blood Count 7.05 K/ul (4.8-10.8)
[2024-04-21] MEDS: FLUoxetine HCL 20 MG CAP PO SCH (08:40)
[2024-04-21] MEDS: ASPIRIN 81 MG ECTAB PO SCH (08:40)
[2024-04-21] MEDS: SIMVASTATIN 20 MG TAB PO SCH (08:40)
[2024-04-21] MEDS: LEVOTHYROXINE SODIUM 125 MCG TABLET PO SCH (08:40)
[2024-04-21 08:45] LABS: Calcium 9.5 mg/dl (8.6-10.3); Magnesium 1.9 mg/dl (1.7-2.4); Potassium 4.4 mmol/L (3.5-5.1)
[2024-04-21] MEDS: LANTUS PER UNIT CHARGE SQ SCH (08:47)
[2024-04-21 08:51] LABS: BUN Creatinine Ratio 28.4 (10-20); Creatinine Clr Calc Pharmacy 95.8 ml/min
[2024-04-21] MEDS ORDERED: INFLUENZA VACC TS2024-25(65y+)/PF (IIV3) 0.5mL Syr IM ONE (09:00)
[2024-04-21 09:23] LABS: Albumin Level 3.9 gm/dl (3.4-5.0); Bilirubin Direct 0.2 mg/dl (0-0.2); Bilirubin,Total 0.8 mg/dl (0.2-1.0); Total Protein 6.8 gm/dl (6.0-8.3)
[2024-04-21 09:32] LABS: Basophils # (auto) 0.04 K/uL (0.00-0.20); Basophils % (auto) 0.6 %; Eosinophils # (auto) 0.02 K/uL (0.00-0.50); Eosinophils % (auto) 0.3 %; Immature Granulocytes # (auto) 0.08 K/uL (0.01-0.20); Immature Granulocytes % (auto) 1.1 %; Lymphocytes # (auto) 0.99 K/uL (1.20-3.40); Monocytes # (auto) 0.27 K/uL (0.11-0.59); Monocytes % (auto) 3.8 %; Neutrophils # (auto) 5.66 K/uL (1.40-6.50); Neutrophils % (auto) 80.2 %
[2024-04-21 11:55] VITALS: TEMP 97.7; O2SAT 90
[2024-04-21 15:07] VITALS: BP 120/74; PULSE 86
--- NOTE | 2024-04-21 16:05 | Discharge Summary ---
Discharge Summary Date of Service April 21, 2024 Principal Dx & Hospital Course #1 = Principal Diagnosis (1) Episode of syncope: (2) Hypoxia: (3) T2DM (type 2 diabetes mellitus): (4) Metastatic adenocarcinoma: Plan Sekou is a 73-year-old male with PMH of T2DM, lung cancer, prostate cancer, renal cell cancer s/p partial nephrectomy, hypothyroidism, HLD, and depression. He presented on 04/20 for a syncopal episode. Patient reports that he normally has a bowel movement every morning. Today around 6:45 AM, he was sitting on the bathroom, but was unable to have a BM. Normally he takes Dulcolax the night before, which provides relief the following morning., However today he felt constipated. When he got up and walked to his desk, he sat down in his chair, and then subsequently passed out. Full LOC. He believes it was only for a short period of time (5 total minutes on the ground). He discovered vomit in his groin area when he came to. He does not believe he hit his head. He does have a history of orthostatic hypotension, but denies any recent syncopal episodes. #Syncopal episode Head CT revealed no acute findings this was likely vasovagal. will discharge home. #Hypoxia Patient's SpO2 was at 89% on RA on arrival Chest CTA did not reveal acute pulmonary embolism ? Secondary to patient's underlying lung cancer Patient reports he does have supplemental oxygen at home, but has not required it recently #T2DM Last A1c at 9.3% on 04/06/2024 Not currently on home diabetic medications Lantus 5 u QAM while inpatient SSI; with target BSG range 110-140mg/dL, CF 50, carb ratio 15 will defer to PCP #Metastatic adenocarcinoma Currently undergoing chemotherapy/radiation therapy for his lung cancer at [facility] Brain MRI on 03/14/2024 did not reveal evidence of metastatic disease Admission HPI Per Admitting Provider Sekou is a 73-year-old male with PMH of T2DM, lung cancer, prostate cancer, renal cell cancer s/p partial nephrectomy, hypothyroidism, HLD, and depression. He presented on 04/20 for a syncopal episode. Patient reports that he normally has a bowel movement every morning. Today around 6:45 AM, he was sitting on the bathroom, but was unable to have a BM. Normally he takes Dulcolax the night before, which provides relief the following morning., However today he felt constipated. When he got up and walked to his desk, he sat down in his chair, and then subsequently passed out. Full LOC. He believes it was only for a short period of time (5 total minutes on the ground). He discovered vomit in his groin area when he came to. He does not believe he hit his head. He does have a history of orthostatic hypotension, but denies any recent syncopal episodes. No sick contacts. Patient is currently undergoing chemotherapy and radiation therapy for his lung cancer at the [facility]. He just had his first [place] atment of chemo and radiation last week. He has had ongoing SOB since February, and does have supplemental oxygen at home, but he has not been needing it recently. Additionally, he reports that he took all his regular morning medicine today; only short medications for that he was started on 2 antinausea medications for chemo, and 1 medication that he supposed to take 6 to 12 hours prior to chemo infusions. Additionally, he reports he takes half a tablet of Tylenol and half a tablet of Advil PM to help him sleep at night (for his chronic lower back pain). Patient does not ambulate with a walker or cane at baseline. Patient is a former tobacco cigarette smoker, but quit 10 years ago; 40-year pack history. No recent alcohol use. Patient is tachycardic at 101 bpm at time admission; SpO2 93% on RA. ED course: Solu-Medrol 60 mg IV Benadryl 50 mg IV NSS 1000 mL IV ROS: Patient endorses lightheadedness, syncope, visual aura (resolved; yesterday), NGUYEN behind the eyes, SOB (resolved; required O2 this morning), vomiting (patient does not remember this episode), chronic LBP, constipation, and residual numbness in both of his toes (from h/o frostbite). Patient denies fever, chills, night-sweats, chest pain, chest palpitations, SOB at rest or with exertion (at present), cough, pleuritic CP, abdominal pain, nausea, diarrhea, blood in urine/stool, or changes in urinary/bowel habits. Discharge Plan Discharge Items Patient Disposition: Home - Self-Care Reason For Visit: SYNCOPE Discharge Diagnosis: syncope Activity: Resume your previous activity Non-emergency contact: Primary Care Provider Call non-emergency contact if: you have any medication questions Follow-up/Referrals: Kamaljit Eason MD [Primary Care Provider] - 04/28/24 1:30 pm Diet: Carb Consistent or DM2 Addtl Attending Provider Instructions: The most common type of syncope (faining) in all age groups is called vasovagal syncope. Vasovagal syncope is by far the most common type of a group of conditions called reflex syncope. A variety of conditions can trigger vasovagal syncope, including physical or psychological stress, dehydration, bleeding, or pain. The heart rate may slow dramatically at the time of the faint, and the blood vessels (mainly the veins) in the body expand, causing blood to pool in the lower extremities and the bowels, resulting in less blood return to the heart and a low blood pressure (hypotension). This causes a decrease in blood flow to the brain which causes near or complete loss of consciousness. Fortunately, blood flow is usually sufficiently restored when the person falls down or is placed in a horizontal position. In some cases, vasovagal syncope is triggered by an emotional response to a stimulus, such as fear of injury, heat exposure, the sight of blood, or extreme pain. In still other cases, no trigger can be identified. Other forms of reflex syncope are those caused by abnormal nervous system responses to activities such as urinating, having a bowel movement, coughing, or swallowing. In most cases of vasovagal syncope, you have some warning that you are near fainting. These signs include dizziness, feeling hot or cold, nausea, pale skin, "tunnel-like" vision, disturbance of hearing, and profuse sweating. After the episode, symptoms may continue because of continued low blood pressure. Some people feel extremely tired afterward. In some cases, particularly in older people, the person may not remember having experienced any warning symptoms after they recover. Recommend followup with your PCP in 1-2 weeks. Pending Studies at Discharge: No Stand-Alone Forms: My [facility] Schedulicity, Smoking Cessation Medications and DC Order Prescriptions: Continued albuterol sulfate 90 mcg/actuation HFA aerosol inhaler 2 puff inhalation Q6H PRN (Reason: SOB) aspirin 81 mg Tablet,Delayed Release (Dr/Ec) 81 mg PO QAM Qty: 0 fluoxetine 40 mg capsule 40 mg PO QAM Qty: 90 3RF levothyroxine 125 mcg tablet 125 mcg PO QAM Qty: 90 3RF simvastatin 20 mg tablet 20 mg PO QAM Qty: 90 3RF tadalafil 20 mg tablet 20 mg PO DAILY PRN (Reason: Erectile Dysfunction) (DME) Oxygen Home Liters Per Minute See Rx Instructions .MEDSUPPLY Qty: 1 0RF Rx Instructions: 1 L/min with activity and nightly cyanocobalamin (vitamin B-12) [Vitamin B-12] 250 mcg Tablet 250 mcg PO QAM cholecalciferol (vitamin D3) [Vitamin D3] 25 mcg (1,000 unit) Tablet 25 mcg PO QAM docusate sodium [Colace] 100 mg capsule 100 mg PO BID PRN (Reason: Constipation) Rx Instructions: Take twice daily for 2 weeks, then as needed for constipation. prochlorperazine maleate 10 mg tablet 10 mg PO Q6H PRN (Reason: n/v) ondansetron 8 mg tablet,disintegrating 8 mg PO Q8H PRN (Reason: n/v) Vitamin C 1 tab PO DAILY Rx Instructions: otc unknown dose Discharge Orders: Discharge Order (Routine); Ordered 04/21/24 Ordered By: Benitez Harrell Admission Data Admit Date/Time: 04/20/24 14:58 Attending Provider: Benitez Harrell Admit Provider: Jaret Mann Primary Care Provider: Kamaljit Eason Other Providers: Jaret Mann Other Interventions: Discharge Summary Assessment (RN) Last Done: 04/21/24 15:04 Hospital Stay Data Consultations 04/20/24 13:18 ED Decision to Admit Stat Diagnostic Imagining Performed 04/20/24 08:57 CT for pulmonary embolism PE [CT angio chest PE protocol] Stat 04/20/24 13:22 CT head/brain wo con Stat Pending Results Patient Have Any Pending Studies at Discharge: No Discharge Instructions Given to Patient (Per Discharging Provider) The most common type of syncope (faining) in all age groups is called vasovagal syncope. Vasovagal syncope is by far the most common type of a group of conditions called reflex syncope. A variety of conditions can trigger vasovagal syncope, including physical or psychological stress, dehydration, bleeding, or pain. The heart rate may slow dramatically at the time of the faint, and the blood vessels (mainly the veins) in the body expand, causing blood to pool in the lower extremities and the bowels, resulting in less blood return to the heart and a low blood pressure (hypotension). This causes a decrease in blood flow to the brain which causes near or complete loss of consciousness. Fortunately, blood flow is usually sufficiently restored when the person falls down or is placed in a horizontal position. In some cases, vasovagal syncope is triggered by an emotional response to a stimulus, such as fear of injury, heat exposure, the sight of blood, or extreme pain. In still other cases, no trigger can be identified. Other forms of reflex syncope are those caused by abnormal nervous system responses to activities such as urinating, having a bowel movement, coughing, or swallowing. In most cases of vasovagal syncope, you have some warning that you are near fainting. These signs include dizziness, feeling hot or cold, nausea, pale skin, "tunnel-like" vision, disturbance of hearing, and profuse sweating. After the episode, symptoms may continue because of continued low blood pressure. Some people feel extremely tired afterward. In some cases, particularly in older people, the person may not remember having experienced any warning symptoms after they recover. Recommend followup with your PCP in 1-2 weeks. Total Time Total Time Spent Total Time Spent (In Minutes): 32 Coding Level of Care Code 09098 INP/OBS DISCH >30 MIN Diagnoses Episode of syncope R55 Hypoxia R09.02 T2DM (type 2 diabetes mellitus) E11.9 Metastatic adenocarcinoma C79.9
== END 2024-04-21 16:01 | disposition home or self-care (01) ==
LOC: EDINP 07:59 → ED 07:59 → SUATTDRO 14:58 → 2W 17:55